=== PATIENT | female | born 1965 | race Caucasian/White ===

== ENCOUNTER 2018-04-21 07:38 | Emergency (ER) | payer BC ==
--- OUTSIDE RECORDS SUMMARY | 2018-04-21 07:44 | XMS REPORT | Continuity of Care Document ---
:1965 External Reference #:[id number] Author Name Alfreda Peace Care Team Providers Name Role Phone Lorene Roach MD Care Team Information White Spooler Unavailable Lorene Roach MD Primary Care Physician Unavailable Payers Type Date Identification Numbers Payment Provider Subscriber Effective: 2011 Policy Number: [id number] [employer] Kiah Genung PayID: [id number] Jessica [id number] MARY Souza [id number] Effective: 2010 Policy Number: [id number] [facility] Ppo Kiah Genung Expires: 2011 Group Name: Ppo [address] [address] PayID: [id number] MARY Coombs [id number] Advance Directives Description No Information Available Problems Date Description Provider Status Onset: 04/22/2015 Essential hypertension Lorene Roach M.D. Active Onset: 05/09/2017 Asthma Lorene Roach M.D. Active Onset: 05/09/2017 Sleep apnea Lorene Roach M.D. 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 [employer] Tobacco Use Start: Unknown Never Smoked Cigarettes ETOH Use Drinks 5 Alcoholic Beverages Per Week Tobacco Use Start: Unknown Patient has never smoked Recreational Drug Use Denies Drug Use Smoking Status Reviewed: 03/24/18 Patient has never smoked Exercise Type/Frequency Walks 2 times a week Exercise Type/Frequency Exercises sporadically Allergies, Adverse Reactions, Alerts Date Description Reaction Status Severity Comments 11/16/2009 Penicillins rash Active Moderate Medications Medication Date Status Form Strength Qnty SIG Indications Ordering Provider Mandibular 04/26 Active Device 1unit fabricate G47.33 Norma s oral Rao, Device appliance USMAN, RN, /glenn HIGGINS r advancemen t device for sleep apnea with needed adjustment s. Amlodipine 06/17 Active Tablets 5mg 90tab take one Besylate s tablet by Cotton, mouth once M.D. daily Valsartan-Hydroc 04/22 Active Tablets 160-25mg 90tab take one hlorothiazide s tablet by Cotton, mouth once M.D. daily Proair HFA 09/01 Active Aerosol 108(90Bas 8.5un Inhale Two e) its Puffs By Cotton, mcg/Act Mouth M.D. Every 4 Hours as Needed Advair Diskus 10/21 Active Aerosol 100-50mcg 60uni inhale one J45.909 /Dose ts puff by Cotton, mouth M.D. twice a day Azithromycin 08/19 Hx Tablets 250mg 6tabs 2 tabs by J01.90 mouth GUCCI Ortiz - every day 08/24 x1 day, tab by mouth every day x 4 days Norvasc 06/17 Hx Tablets 5mg 90tab 1 by mouth s every day Cotton, - M.D. 06/17 Azithromycin 05/28 Hx Tablets 250mg 6tabs 2 tabs by J01.90 Lorene mouth on Cotton, - day 1; 1 M.D. 06/01 tab by /2016 mouth every day on days 2-5 Transderm-Scop 04/22 Hx Patches 1mg/3Days 5unit apply to 72HR s skin Doc, - behind the M.D. 02/15 ear every 3 days Azithromycin 04/27 Hx Tablets 250mg 6tabs 2 tabs po 461.9 on day 1; Doc, - 1 tab po M.D. 05/10 qd on 2-5 Valsartan-Hydroc 03/19 Hx Tablets 160-12.5m 90tab Take One Lorene hlorothiazide g s Tablet By Cotton, - Mouth Once M.D. 04/22 Azithromycin 06/14 Hx Tablets 250mg 6tabs 2 tabs po 462 Lorene on day 1; Cotton, - 1 tab po M.D. 10/03 qd on 2-5 Valacyclovir HCL 12/15 Hx Tablets 1gm 21tab 1 po tid 053.29 s for 7 days Varn, N.P. - 12/22 Neurontin 12/15 Hx Capsules 300mg 90cap 1 po up to 053.29 s tid Varn, N.P. - 02/13 Cyclobenzaprine 12/09 Hx Tablets 10mg 30tab 1 tablet 724.2 Lorene HCL s at bedtime Doc, - as needed M.D. 02/24 Nystatin 10/29 Hx Suspension 143276Ghm 250ml 4 ml swish t/ML and Doc, - swallow M.D. 02/24 qid for days Azithromycin 10/21 Hx Tablets 250mg 6tabs 2 tabs po 786.50 on day 1; Doc, - 1 tab po M.D. 11/06 qd on 2-5 Proair HFA 10/21 Hx Aerosol 108(90Bas 1unit 2 puffs 4 493.90 e) mcg/ac s times Doc, - daily as M.D. 09/01 Diovan HCT 08/23 Hx Tablets 160-12.5m 90tab 1 po qd g s Doc - M.D. 03/19 Amlodipine 12/23 Hx Tablets 5mg 90tab Take One Lorene Besylate s Tablet By Cotton, - Mouth Once M.D. 06/17 Daily Amlodipine 12/04 Hx Tablets 2.5mg 30tab 1 po qd 401.1 Lorene Besylate s Doc - M.D. 12/23 Hydrocortisone 02/05 Hx Cream 2.5% 30gm apply to 782.1 affected Cotton, - area twice M.D. 02/24 Atenolol 12/19 Hx Tablets 25mg 30tab 1 by mouth 401.1 s once daily Cotton, - M.D. 04/24 Diovan HCT 11/16 Hx Tablets 160-25mg 30tab Take One s Tablet By Cotton, - Mouth Once M.D. 08/[address] 20mg 1 by mouth Unknown /0000 every day - 03/24 Immunizations CPT Code Status Date Vaccine Lot # [id number] Given 02/05/2018 Influenza Virus Vaccine, Quadrivalent, Split, Preservative Free [id number] Given 02/03/2017 Influenza Virus Vaccine, Quadrivalent, Split, Preservative Free 87848 Given 01/11/2014 Pneumonia Vaccine [id number] Given 02/25/2012 Fluvirin Im 3Yrs And Older [id number] Given 02/25/2012 Tdap - Tetanus/Diptheria/Acellular Pertussis [id number] Given 02/05/2010 Influenza Virus 3Yrs & Over [id number] Given 02/14/2009 Influenza Virus 3Yrs & Over Vital Signs Date Vital Result Comment 03/24/2018 8:41am Height 60 inches 5'0" Weight 198.00 lb Heart Rate 81 /min BP Systolic Sitting 127 mmHg BP Diastolic Sitting 87 mmHg O2 % BldC Oximetry 98 % BMI (Body Mass Index) 38.7 kg/m2 08/05/2017 7:30am Weight 219.25 lb Heart Rate 91 /min BP Systolic 134 mmHg BP Diastolic 80 mmHg Body Temperature 97.8 F O2 % BldC Oximetry 94 % 04/26/2017 9:17am Height 60 inches 5'0" Weight 222.50 lb Heart Rate 80 /min BP Systolic Sitting 132 mmHg Lue large cuff BP Diastolic Sitting 86 mmHg Lue large cuff Respiratory Rate 16 /min O2 % BldC Oximetry 96 % On Ra BMI (Body Mass Index) 43.4 kg/m2 02/16/2017 8:40am Height 60 inches 5'0" Weight 221.00 lb Heart Rate 76 /min BP Systolic Sitting 118 mmHg BP Diastolic Sitting 90 mmHg Respiratory Rate 14 /min O2 % BldC Oximetry 96 % BMI (Body Mass Index) 43.2 kg/m2 Neck Circumference in inches 17 12/17/2016 11:53am Weight 221.25 lb Heart Rate 80 /min BP Systolic Sitting 122 mmHg BP Diastolic Sitting 80 mmHg Respiratory Rate 16 /min O2 % BldC Oximetry 96 % 08/19/2016 11:33am Weight 222.00 lb Heart Rate 75 /min BP Systolic Sitting 118 mmHg BP Diastolic Sitting 86 mmHg Body Temperature 98.0 F O2 % BldC Oximetry 96 % 07/09/2016 9:34am Height 60 inches 5'0" Weight 216.00 lb Heart Rate 88 /min BP Systolic 155 mmHg BP Diastolic 90 mmHg Respiratory Rate 17 /min Pain Level 0 BMI (Body Mass Index) 42.2 kg/m2 06/02/2016 10:52am Height 60 inches 5'0" Weight 216.00 lb BP Systolic Sitting 122 mmHg BP Diastolic Sitting 72 mmHg Pain Level 4 BMI (Body Mass Index) 42.2 kg/m2 05/28/2016 7:43am Weight 216.00 lb with shoes Heart Rate 83 /min BP Systolic 130 mmHg BP Diastolic 82 mmHg BP Systolic Sitting 128 mmHg BP Diastolic Sitting 92 mmHg Body Temperature 98.5 F O2 % BldC Oximetry 98 % 11/26/2015 8:41am Weight 215.00 lb with shoes Heart Rate 76 /min BP Systolic Sitting 130 mmHg BP Diastolic Sitting 90 mmHg Body Temperature 98.5 F O2 % BldC Oximetry 98 % 04/22/2015 8:45am Weight 215.00 lb Heart Rate 86 /min BP Systolic Sitting 138 mmHg BP Diastolic Sitting 68 mmHg Body Temperature 98.6 F O2 % BldC Oximetry 97 % 12/19/2014 8:11am Height 60 inches 5'0" Weight 211.00 lb Pain Level 2 up to 5 BMI (Body Mass Index) 41.2 kg/m2 09/21/2014 9:46am Weight 211.75 lb Heart Rate 84 /min BP Systolic Sitting 130 mmHg BP Diastolic Sitting 89 mmHg 01/11/2014 9:40am Weight 203.00 lb Heart Rate 72 /min BP Systolic Sitting 120 mmHg BP Diastolic Sitting 78 mmHg Body Temperature 97.1 F 04/27/2013 9:21am Weight 178.50 lb Heart Rate 72 /min BP Systolic 122 mmHg BP Diastolic 78 mmHg Body Temperature 97.3 F 12/20/2012 3:37pm Weight 195.00 lb Heart Rate 78 /min BP Systolic Sitting 124 mmHg BP Diastolic Sitting 80 mmHg 10/25/2012 9:44am Weight 199.00 lb Heart Rate 80 /min BP Systolic Sitting 128 mmHg BP Diastolic Sitting 80 mmHg 06/14/2012 1:38pm Height 60.75 inches 5'0.75" Weight 203.00 lb Heart Rate 78 /min BP Systolic Sitting 126 mmHg BP Diastolic Sitting 82 mmHg Body Temperature 98.2 F BMI (Body Mass Index) 38.7 kg/m2 02/25/2012 8:40am Height 60.75 inches 5'0.75" Weight 199.00 lb Heart Rate 80 /min BP Systolic Sitting 118 mmHg BP Diastolic Sitting 80 mmHg BMI (Body Mass Index) 37.9 kg/m2 12/16/2011 11:38am Height 60.75 inches 5'0.75" Weight 193.00 lb Heart Rate 80 /min BP Systolic Sitting 136 mmHg BP Diastolic Sitting 80 mmHg Body Temperature 99.3 F BMI (Body Mass Index) 36.8 kg/m2 12/10/2011 1:57pm Height 60.75 inches 5'0.75" Weight 197.00 lb Heart Rate 76 /min BP Systolic Sitting 124 mmHg BP Diastolic Sitting 74 mmHg Body Temperature 98.6 F BMI (Body Mass Index) 37.5 kg/m2 11/12/2011 11:58am Height 60.75 inches 5'0.75" Weight 194.00 lb Heart Rate 72 /min BP Systolic Sitting 122 mmHg BP Diastolic Sitting 68 mmHg BMI (Body Mass Index) 37.0 kg/m2 10/22/2011 8:42am Height 60.75 inches 5'0.75" Weight 194.00 lb Heart Rate 76 /min BP Systolic Sitting 128 mmHg BP Diastolic Sitting 78 mmHg Body Temperature 97.9 F O2 % BldC Oximetry 98 % BMI (Body Mass Index) 37.0 kg/m2 08/24/2011 2:47pm Height 60.75 inches 5'0.75" Weight 195.00 lb Heart Rate 80 /min BP Systolic Sitting 126 mmHg BP Diastolic Sitting 78 mmHg BMI (Body Mass Index) 37.1 kg/m2 04/23/2011 9:46am Height 60.75 inches 5'0.75" Weight 201.00 lb Heart Rate 100 /min BP Systolic Sitting 130 mmHg BP Diastolic Sitting 78 mmHg BMI (Body Mass Index) 38.3 kg/m2 12/23/2010 8:34am Height 60.75 inches 5'0.75" Weight 201.00 lb Heart Rate 82 /min BP Systolic Sitting 128 mmHg L BP Diastolic Sitting 82 mmHg L BP Systolic Standing 113 mmHg home cuff BP Diastolic Standing 78 mmHg home cuff BMI (Body Mass Index) 38.3 kg/m2 12/04/2010 11:47am Height 60.75 inches 5'0.75" Weight 201.00 lb Heart Rate 70 /min BP Systolic Sitting 130 mmHg repeat 148/100 on R BP Diastolic Sitting 84 mmHg repeat 148/100 on R BMI (Body Mass Index) 38.3 kg/m2 06/06/2010 8:49am Weight 198.00 lb Heart Rate 78 /min BP Systolic 122 mmHg BP Diastolic 84 mmHg 04/24/2010 3:16pm Heart Rate 76 /min BP Systolic 142 mmHg BP Diastolic 92 mmHg Body Temperature 97.8 F 02/05/2010 8:48am Weight 197.00 lb Heart Rate 60 /min BP Systolic 90 mmHg BP Diastolic 70 mmHg 11/18/2009 5:32pm Weight 192.50 lb Heart Rate 72 /min BP Systolic 130 mmHg BP Diastolic 90 mmHg Body Temperature 98.3 F Results Test Date Facility Test Result H/L Range Note Lipid Profile 03/11/2018 [facility] Triglycerides 136 mg/dL 1 (Trig/Chol/HDL) [address] [place] [address] [phone] Cholesterol 185 mg/dL 2 HDL Cholesterol 65.3 mg/dL 3 LDL Cholesterol 93 mg/dL 4 Comp Metabolic Panel 03/11/2018 [facility] Sodium 139 mmol/L N 135-145 [address] [place] [address] [phone] Potassium 3.8 mmol/L N 3.5-5.0 Chloride 99 mmol/L Low 101-111 Co2 Carbon Dioxide 31 mmol/L N 22-32 Anion Gap 9 mmol/L N 2-11 Glucose 97 mg/dL N 70-100 Blood Urea Nitrogen 12 mg/dL N 6-24 Creatinine 0.71 mg/dL N 0.51-0.95 BUN/Creatinine Ratio 16.9 N 8-20 Calcium 9.9 mg/dL N 8.6-10.3 Total Protein 7.0 g/dL N 6.4-8.9 Albumin 4.1 g/dL N 3.2-5.2 Globulin 2.9 g/dL N 2-4 Albumin/Globulin Ratio 1.4 N 1-3 Total Bilirubin 0.70 mg/dL N 0.2-1.0 Alkaline Phosphatase 84 U/L N 34-104 Alt 17 U/L N 7-52 Ast 12 U/L Low 13-39 Egfr Non- 86.1 >60 Egfr 104.2 >60 5 Laboratory test 03/11/2018 [facility] Hemoglobin A1c 6.1 % High 4.0-5.6 [address] (Glyco HGB) [place] [address] [phone] Vitamin B12 185 pg/mL N 180-914 7 Laboratory test 01/20/2017 [facility] TSH (Thyroid 2.30 mcIU/mL N 0.34-5.[address] Stim Horm) [place] [address] [phone] Urinalysis 01/20/2017 [facility] Urine Color Yellow N Profile [address] [place] [address] [phone] Urine Appearance Clear N Urine Specific [place] 1.017 N 1.010-1.030 Urine pH 6.0 N 5-9 Urine Urobilinogen Negative N Negative Urine Ketones Negative N Negative Urine Protein Negative N Negative Urine Leukocytes Negative N Negative Urine Blood Negative N Negative Urine Nitrite Negative N Negative Urine Bilirubin Negative N Negative Urine Glucose Negative N Negative CBC Auto Diff 01/20/2017 [facility] White Blood 6.7 10^3/uL N 3.5-10.[address] [place] [address] [phone] Red Blood Count 5.12 10^6/uL N 4.0-5.4 Hemoglobin 13.7 g/dL N 12.0-16.0 Hematocrit 41 % N 35-47 Mean Corpuscular Volume 80 fL N 80-97 Mean Corpuscular Hemoglobin 27 pg N 27-31 Mean Corpuscular HGB Conc 34 g/dL N 31-36 Red Cell Distribution Width 15 % N 10.5-15 Platelet Count 371 10^3/uL N 150-450 Mean Platelet Volume 8 um3 N 7.4-10.4 Abs Neutrophils 3.9 10^3/uL N 1.5-7.7 Abs Lymphocytes 1.8 10^3/uL N 1.0-4.8 Abs Monocytes 0.5 10^3/uL N 0-0.8 Abs Eosinophils 0.5 10^3/uL N 0-0.6 Abs Basophils 0.1 10^3/uL N 0-0.2 Abs Nucleated RBC 0 10^3/uL N Granulocyte % 57.8 % N 38-83 Lymphocyte % 26.6 % N 25-47 Monocyte % 7.3 % N 1-9 Eosinophil % 7.0 % High 0-6 Basophil % 1.3 % N 0-2 Nucleated Red Blood Cells % 0 N Lipid Profile 12/09/2016 [facility] Triglycerides 150 mg/dL N 8 (Trig/Chol/HDL) [address] [place] [address] [phone] Cholesterol 195 mg/dL N 9 HDL Cholesterol 61.9 mg/dL N 10 LDL Cholesterol 103 mg/dL N 11 Comp Metabolic Panel 12/09/2016 [facility] Sodium 138 mmol/L N 133-[address] [place] [address] [phone] Potassium 4.3 mmol/L N 3.5-5.0 Chloride 98 mmol/L Low 101-111 Co2 Carbon Dioxide 32 mmol/L N 22-32 Anion Gap 8 mmol/L N 2-11 Glucose 109 mg/dL High 70-100 Blood Urea Nitrogen 16 mg/dL N 6-24 Creatinine 0.80 mg/dL N 0.51-0.95 BUN/Creatinine Ratio 20.0 N 8-20 Calcium 9.9 mg/dL N 8.6-10.3 Total Protein 7.3 g/dL N 6.4-8.9 Albumin 4.1 g/dL N 3.2-5.2 Globulin 3.2 g/dL N 2-4 Albumin/Globulin Ratio 1.3 N 1-3 Total Bilirubin 0.70 mg/dL N 0.2-1.0 Alkaline Phosphatase 77 U/L N 34-104 Alt 18 U/L N 7-52 Ast 13 U/L N 13-39 Egfr Non- 75.6 N >60 Egfr 97.3 N >60 12 Laboratory 12/09/2016 [facility] Hemoglobin A1c 6.0 % High Less 13 test finding [address] (Glyco HGB) [place] [address] 6.0 [phone] Laboratory 02/18/2016 [facility] Surgical SEE 14 test finding [address] [place] [address] BELOW [phone] Lipid Profile 11/20/2015 [facility] Triglycerides 194 mg/dL N 15, (Trig/Chol/HDL [address] 16 ) [place] [address] [phone] Cholesterol 211 mg/dL N 17 HDL Cholesterol 64.5 mg/dL N 18 LDL Cholesterol 108 mg/dL N 19 Laboratory test 11/20/2015 [facility] Hemoglobin A1c 5.8 % N Less than [address] (Glyco HGB) 6.0 [place], [place] [phone] Comp Metabolic 11/20/2015 [facility] Sodium 137 N 133-[address] mmol/[place] [address] [phone] Potassium 3.7 mmol/L N 3.5-5.0 Chloride 100 mmol/L Low 101-111 Co2 Carbon Dioxide 27 mmol/L N 22-32 Anion Gap 10 mmol/L N 2-11 Glucose 106 mg/dL High 70-100 Blood Urea Nitrogen 12 mg/dL N 6-24 Creatinine 0.74 mg/dL N 0.51-0.95 BUN/Creatinine Ratio 16.2 N 8-20 Calcium 9.8 mg/dL N 8.6-10.3 Total Protein 7.3 g/dL N 6.4-8.9 Albumin 4.3 g/dL N 3.2-5.2 Globulin 3.0 g/dL N 2-4 Albumin/Globulin Ratio 1.4 N 1-3 Total Bilirubin 0.70 mg/dL N 0.2-1.0 Alkaline Phosphatase 81 U/L N 34-104 Alt 23 U/L N 7-52 Ast 18 U/L N 13-39 Egfr Non- 83.1 N >60 Egfr 106.8 N >60 21 Rapid Influenza 08/18/2015 [facility] Influenza A NEGATIVE N Negative 22 A & B Molecular [address] [place] [address] [phone] Influenza B Molecular POSITIVE Abnormal Negative Comp Metabolic Panel 04/18/2015 [facility] Sodium 137 mmol/L N 133-[address] [place] [address] [phone] Potassium 4.1 mmol/L N 3.5-5.0 Chloride 100 mmol/L Low 101-111 Co2 Carbon Dioxide 25 mmol/L N 22-32 Anion Gap 12 mmol/L High 2-11 Glucose 113 mg/dL High 70-100 Blood Urea Nitrogen 16 mg/dL N 6-24 Creatinine 0.82 mg/dL N 0.51-0.95 BUN/Creatinine Ratio 19.5 N 8-20 Calcium 9.8 mg/dL N 8.6-10.3 Total Protein 7.2 g/dL N 6.4-8.9 Albumin 4.4 g/dL N 3.2-5.2 Globulin 2.8 g/dL N 2-4 Albumin/Globulin Ratio 1.6 N 1-3 Total Bilirubin 0.60 mg/dL N 0.2-1.0 Alkaline Phosphatase 79 U/L N 34-104 Alt 22 U/L N 7-52 Ast 17 U/L N 13-39 Egfr Non- 73.8 N >60 Egfr 94.9 N >60 23 Lipid Profile 04/18/2015 [facility] Triglycerides 128 mg/dL N 24 (Trig/Chol/HDL) [address] [place] [address] [phone] Cholesterol 187 mg/dL N 25 HDL Cholesterol 66.8 mg/dL N 26 LDL Cholesterol 95 mg/dL N 27 Laboratory test 04/18/2015 [facility] Hemoglobin A1c 5.7 % N Less than [address] (Glyco HGB) 6.0 [place] [address] [phone] Laboratory test 09/17/2014 Hemoglobin A1c 5.8 % N Less than 29 finding (Glyco HGB) 6.0 Comp Metabolic 12/22/2013 [facility] Sodium 139 N 133-145 [address] mmol/[place] [address] [phone] Potassium 4.5 mmol/L N 3.7-5.6 Chloride 103 mmol/L N 101-111 Co2 Carbon Dioxide 28 mmol/L N 22-32 Anion Gap 8 mmol/L N 2-11 Glucose 92 mg/dL N 70-100 Blood Urea Nitrogen 13 mg/dL N 6-24 Creatinine 0.71 mg/dL N 0.51-0.95 BUN/Creatinine Ratio 18.3 N 8-20 Calcium 9.6 mg/dL N 8.6-10.3 Total Protein 7.4 g/dL N 6.4-8.9 Albumin 4.1 g/dL N 3.2-5.2 Globulin 3.3 g/dL N 2-4 Albumin/Globulin Ratio 1.2 N 1-3 Total Bilirubin 0.60 mg/dL N 0.2-1.0 Alkaline Phosphatase 79 U/L N 34-104 Alt 18 U/L N 7-52 Ast 15 U/L N 13-39 Egfr Non- 87.5 N >60 Egfr 112.5 N >60 31 Lipid Profile 12/22/2013 [facility] Triglycerides 132 mg/dL N 32 (Trig/Chol/HDL) [address] [place] [address] [phone] Cholesterol 184 mg/dL N 33 HDL Cholesterol 75.4 mg/dL N 34 LDL Cholesterol 82 mg/dL N 35 Laboratory test 12/22/2013 [facility] Hemoglobin A1c 5.9 % N Less than 36 finding 101 [facility] [address] [place] [address] [phone] TSH (Thyroid Stimulating Horm) 1.53 IU/mL N 0.34-5.60 37 Basic Metabolic Panel 03/03/2013 [facility] Sodium 138 mmol/L 133-145 [address] [place] [address] [phone] Potassium 4.3 mmol/L 3.5-5.0 Chloride 100 mmol/L Low 101-111 Co2 Carbon Dioxide 28.0 mmol/L 22-32 Anion Gap 10.0 mmol/L 2-11 Glucose 99 mg/dL 70-100 Blood Urea Nitrogen 11 mg/dL 6-24 Creatinine 0.80 mg/dL 0.50-1.40 BUN/Creatinine Ratio 13.8 8-20 Calcium 10.0 mg/dL High 8.1-9.9 Egfr Non- 76.6 >60 Egfr 98.5 >60 38 Laboratory test 03/03/2013 [facility] Hemoglobin A1c 6.1 % High Less than [address] [place] [address] [phone] Laboratory test 12/14/2012 [facility] Troponin I 0 ng/mL 0- 0.06 40 finding [address] [place] [address] [phone] CBC Auto Diff 12/14/2012 [facility] White Blood 10.5 4.8- 10.[address] Count 10^3/[place] [address] [phone] Red Blood Count 4.57 10^6/uL 4.0-5.4 Hemoglobin 12.4 g/dL 12.0-16.0 Hematocrit 38 % 35-47 Mean Corpuscular Volume 82 fL 80-97 Mean Corpuscular Hemoglobin 27 pg 27-31 Mean Corpuscular HGB Conc 33 g/dL 31-36 Red Cell Distribution Width 14 % 10.5-15 Platelet Count 322 10^3/uL 150-450 Mean Platelet Volume 7 um3 Low 7.4-10.4 Abs Neutrophils 7.7 10^3/uL 1.5-7.7 Abs Lymphocytes 1.7 10^3/uL 1.0-4.8 Abs Monocytes 0.7 10^3/uL 0-0.8 Abs Eosinophils 0.3 10^3/uL 0-0.6 Abs Basophils 0.1 10^3/uL 0-0.2 Abs Nucleated RBC 0 10^3/uL Granulocyte % 73.4 % 38-83 Lymphocyte % 16.2 % Low 25-47 Monocyte % 6.6 % 1-9 Eosinophil % 3.3 % 0-6 Basophil % 0.5 % 0-2 Nucleated Red Blood Cells % 0 Laboratory test 12/14/2012 [facility] Serum Negative Negative [address] [place] [address] [phone] Comp Metabolic 12/14/2012 [facility] Sodium 136 mmol/L 133- [address] [place] [address] [phone] Potassium 3.4 mmol/L Low 3.5-5.0 Chloride 101 mmol/L 101-111 Co2 Carbon Dioxide 26.0 mmol/L 22-32 Anion Gap 9.0 mmol/L 2-11 Glucose 116 mg/dL High 70-100 Blood Urea Nitrogen 12 mg/dL 6-24 Creatinine 0.80 mg/dL 0.50-1.40 BUN/Creatinine Ratio 15.0 8-20 Calcium 9.4 mg/dL 8.1-9.9 Total Protein 7.2 g/dL 6.2-8.1 Albumin 3.9 g/dL 3.6-5.4 Globulin 3.3 g/dL 2-4 Albumin/Globulin Ratio 1.2 1-3 Total Bilirubin 0.5 mg/dL 0.4-1.5 Alkaline Phosphatase 70 U/L 30-110 Alt 17 U/L 14-54 Ast 20 U/L 12-42 Egfr Non- 76.6 >60 Egfr 98.5 >60 42 Laboratory test 12/14/2012 [facility] Troponin I 0 ng/mL 0- 0.06 [address] [place] [address] [phone] Comp Metabolic 09/27/2012 [facility] Sodium 138 mmol/L 133- 145 Panel [address] [place] [address] [phone] Potassium 4.5 mmol/L 3.5-5.0 Chloride 101 mmol/L 101-111 Co2 Carbon Dioxide 29.0 mmol/L 22-32 Anion Gap 8.0 mmol/L 2-11 Glucose 104 mg/dL High 70-100 Blood Urea Nitrogen 11 mg/dL 6-24 Creatinine 0.70 mg/dL 0.50-1.40 BUN/Creatinine Ratio 15.7 8-20 Calcium 10.2 mg/dL High 8.1-9.9 Total Protein 6.9 g/dL 6.2-8.1 Albumin 4.0 g/dL 3.6-5.4 Globulin 2.9 g/dL 2-4 Albumin/Globulin Ratio 1.4 1-3 Total Bilirubin 0.8 mg/dL 0.4-1.5 Alkaline Phosphatase 84 U/L 30-110 Alt 21 U/L 14-54 Ast 19 U/L 12-42 Egfr Non- 89.7 >60 Egfr 115.4 >60 44 Lipid Profile 09/27/2012 [facility] Triglycerides 145 mg/dL 40-200 (Trig/Chol/HDL) [address] [place] [address] [phone] Cholesterol 186 mg/dL Less than 200 HDL Cholesterol 64 mg/dL High 40-60 45 Cholesterol/HDL Ratio 2.9 Average 1-4.44 LDL Cholesterol 93.0 mg/dL Less Than 100 46 Laboratory test 09/27/2012 [facility] Hemoglobin A1c 6.1 % High Less than [address] [place] [address] [phone] Basic Metabolic 11/12/2011 [facility] Sodium 140 135-[address] mmol/[place] [address] [phone] Potassium 4.2 mmol/L 3.5-5.0 Chloride 100 mmol/L Low 101-111 Co2 (Carbon Dioxide) 33.0 mmol/L High 22-32 Anion Gap 7.0 mmol/L 2-11 48 Glucose 89 mg/dL 70-100 BUN 6 mg/dL 6-24 Creatinine 0.8 mg/dL 0.50-1.40 One Over Creatinine 1.25 BUN/Creatinine Ratio 7.5 Low 8-20 Calcium 9.8 mg/dL 8.1-9.9 eGFR Non- 77.2 > 60 eGFR 99.3 > 60 49 Lipid Profile 08/14/2011 [facility] Triglyceride 177 mg/dL 40 -200 (Trig/Chol/HDL) [address] [place] [address] [phone] Cholesterol 161 mg/dL Less Than 200 50 High Density Lipoprotein 52 mg/dL 40-60 51 Cholesterol/HDL Ratio 3.10 AVERAGE 1-4.44 Low Density Lipoprotein 74 mg/dL Less Than 100 52 Comp Metabolic Panel 08/14/2011 [facility] Sodium 136 mmol/L 135-[address] [place] [address] [phone] Potassium 3.3 mmol/L Low 3.5-5.0 Chloride 99 mmol/L Low 101-111 Co2 (Carbon Dioxide) 29.0 mmol/L 22-32 Anion Gap 8.0 mmol/L 2-11 53 Glucose 109 mg/dL High 70-100 BUN 8 mg/dL 6-24 Creatinine 0.8 mg/dL 0.50-1.40 One Over Creatinine 1.25 BUN/Creatinine Ratio 10.0 8-20 Calcium 9.6 mg/dL 8.1-9.9 Total Protein 7.2 GM/DL 6.2-8.1 Albumin 4.2 GM/DL 3.6-5.4 Globulin 3.0 GM/DL 2-4 Albumin/Globulin Ratio 1.4 1-3 Bilirubin Total 0.9 mg/dL 0.4-1.5 54 Alkaline Phosphatase 66 U/L 30-110 Alt (SGPT) 19 U/L 14-54 Ast (Sgot) 17 U/L 12-42 eGFR Non- 77.2 > 60 eGFR 99.3 > 60 55 Laboratory test 08/14/2011 [facility] Hemoglobin A1c 5.8 % Less Than [address] [place] [address] [phone] Laboratory test 12/16/2010 [facility] Hemoglobin A1c 6.1 % High Less Than [address] [place] [address] [phone] Basic Metabolic 12/16/2010 [facility] Sodium 138 135-[address] mmol/[place] [address] [phone] Potassium 4.1 mmol/L 3.5-5.0 Chloride 99 mmol/L Low 101-111 Co2 (Carbon Dioxide) 30.0 mmol/L 22-32 Anion Gap 9.0 mmol/L 2-11 58 Glucose 116 mg/dL High 70-100 BUN 9 mg/dL 6-24 Creatinine 0.70 mg/dL 0.50-1.40 One Over Creatinine 1.40 BUN/Creatinine Ratio 12.9 8-20 Calcium 9.8 mg/dL 8.1-9.9 eGFR Non- 90.1 > 60 eGFR 115.9 > 60 59 CBC No Diff 12/16/2010 [facility] White Blood Count 6.6 CUMM 4.8-10.[address] [place] [address] [phone] Red Cell Count 4.74 CUMM 4.2-5.4 Hemoglobin 13.2 g/dL 12.0-16.0 Hematocrit 39 % 35-47 Mean Corpuscular Volume 82 um3 79-97 Mean Corpuscular Hemoglob 28 pg 27-31 Mean Corpuscular HGB Cone 34 g/dL 32-36 Redcell Distribution WDTH 14 % 10.5-15 Platelet Count 337 CUMM 150-450 Mean Platelet Volume 7.7 um3 7.4-10.4 Comp Metabolic Panel 05/29/2010 [facility] Sodium 134 mmol/L Low 135-[address] [place] [address] [phone] Potassium 3.9 mmol/L 3.5-5.0 Chloride 99 mmol/L Low 101-111 Co2 (Carbon Dioxide) 25.0 mmol/L 22-32 Anion Gap 10.0 mmol/L 2-11 60 Glucose 92 mg/dL 70-100 BUN 12 mg/dL 6-24 Creatinine 0.80 mg/dL 0.50-1.40 One Over Creatinine 1.20 BUN/Creatinine Ratio 15.0 8-20 Calcium 9.7 mg/dL 8.1-9.9 Total Protein 7.2 GM/DL 6.2-8.1 Albumin 3.9 GM/DL 3.6-5.4 Globulin 3.3 GM/DL 2-4 Albumin/Globulin Ratio 1.2 1-3 Bilirubin Total 0.7 mg/dL 0.4-1.5 61 Alkaline Phosphatase 76 U/L 30-110 Alt (SGPT) 20 U/L 14-54 Ast (Sgot) 17 U/L 12-42 eGFR Non- 82.4 > 60 eGFR 99.8 > 60 62 Lipid Profile 05/29/2010 [facility] Triglyceride 178 mg/dL 40 -200 (Trig/Chol/HDL) [address] [place] [address] [phone] Cholesterol 189 mg/dL Less Than 200 63 High Density Lipoprotein 48 mg/dL 40-60 64 Cholesterol/HDL Ratio 3.94 AVERAGE 1-4.44 Low Density Lipoprotein 105 mg/dL High Less Than 100 65 Laboratory test 05/29/2010 [facility] Hemoglobin A1c 5.8 % Less Than [address] [place] [address] [phone] 1 Desirable: <150 Borderline High: 150-199 High: 200-499 Very High: >500 2 Desirable: <200 Borderline High: 200-239 High: >239 3 Low: <40 Desirable: 40-60 High: >60 4 Desirable: <100 Near Optimal: 100-129 Borderline High: 130-159 High: 160-189 Very High: >189 5 Because ethnic data is not always readily available, this report includes an eGFR for both -Americans and non- Americans. The National Kidney Disease Education Program (NKDEP) does not endorse the use of the MDRD equation for patients that are not between the ages of 18 and 70, are , have extremes of body size, muscle mass, or nutritional status, or are non- or non-. According to the National Kidney Foundation, irrespective of diagnosis, the stage of the disease is based on the level of kidney function: Stage Description GFR(mL/min/1.73 m(2)) 1 Kidney damage with normal or decreased GFR 90 2 Kidney damage with mild decrease in GFR 60-89 3 Moderate decrease in GFR 30-59 4 Severe decrease in GFR 15-29 5 Kidney failure <15 (or dialysis) 6 Therapeutic target for the treatment of diabetes mellitus patients is <7% HBA1C, and in selective patients <6.0%. Please refer to [place] [employer] diabetic care guidelines for further information. 7 Normal Range 180 to 914 Indeterminate Range 145 to 180 Deficient Range <145 8 Desirable <150 Borderline high 150-199 High 200-499 Very High >500 9 Desirable <200 Borderline high 200-239 High >239 10 Low <40 Desirable: 40-60 High: >60 11 Desirable: <100 mg/dL Near Optimal: 100-129 mg/dL Borderline High: 130-159 mg/dL High: 160-189 mg/dL Very High: >189 mg/dL 12 Because ethnic data is not always readily available, this report includes an eGFR for both -Americans and non- Americans. The National Kidney Disease Education Program (NKDEP) does not endorse the use of the MDRD equation for patients that are not between the ages of 18 and 70, are , have extremes of body size, muscle mass, or nutritional status, or are non- or non-. According to the National Kidney Foundation, irrespective of diagnosis, the stage of the disease is based on the level of kidney function: Stage Description GFR(mL/min/1.73 m(2)) 1 Kidney damage with normal or decreased GFR 90 2 Kidney damage with mild decrease in GFR 60-89 3 Moderate decrease in GFR 30-59 4 Severe decrease in GFR 15-29 5 Kidney failure <15 (or dialysis) 13 Therapeutic target for the treatment of diabetes Mellitus patients is <7% HBA1C, and in selective patients <6.0%.Please refer to [place] [employer] Diabetic care guidelines for further information. 14 SEE RESULT BELOW Name: KIAH THOAMS : [address]: Kyle Grullon MD Acct: [id number] Unit: [id number] AGE: 50 Location: ENDO Re02/18/16 SEX: F Status: REG REF SPEC: [id number] AUSTEN: 02/18/16-[address]: Kyle Grullon MD REQ: [id number] RECD: 02/18/16 STATUS: DAYANNA MURO DR: Lorene Roach MD _ ORDERED: LEVEL IV FINAL DIAGNOSIS Colon, 10 cm, biopsy: -- Hyperplastic polyp. CLINICAL HISTORY Usual bowel habit - every day with no blood. Uncle and father - colorectal cancer, mother - breast, lymphoma POST-OPERATIVE DIAGNOSIS Colonoscopy to cecum with ease though loopy, excellent prep. Conclusions/Plan : Rectal nodule, positive family history second generation GROSS DESCRIPTION The specimen is received in formalin labeled, Rectal Polyp at 10 cm, and consists of a 0.3 x 0.3 x 0.2 cm bishop-pink polypoid soft tissue fragment, which is submitted entirely in one cassette. Signed (signature on file) David Zhao MD 1413 END OF REPORT * ML=Testing performed at Main Lab DEPARTMENT OF PATHOLOGY, [address] [place] [address] David Zhao M.D. Director [facility] # [id number] 15 PT IS FASTING 16 Desirable <150 Borderline high 150-199 High 200-499 Very High >500 17 Desirable <200 Borderline high 200-239 High >239 18 Low <40 Desirable: 40-60 High: >60 19 Desirable: <100 mg/dL Near Optimal: 100-129 mg/dL Borderline High: 130-159 mg/dL High: 160-189 mg/dL Very High: >189 mg/dL 20 Therapeutic target for the treatment of diabetes Mellitus patients is <7% HBA1C, and in selective patients <6.0%.Please refer to [place] [employer] Diabetic care guidelines for further information. 21 Because ethnic data is not always readily available, this report includes an eGFR for both -Americans and non- Americans. The National Kidney Disease Education Program (NKDEP) does not endorse the use of the MDRD equation for patients that are not between the ages of 18 and 70, are , have extremes of body size, muscle mass, or nutritional status, or are non- or non-. According to the National Kidney Foundation, irrespective of diagnosis, the stage of the disease is based on the level of kidney function: Stage Description GFR(mL/min/1.73 m(2)) 1 Kidney damage with normal or decreased GFR 90 2 Kidney damage with mild decrease in GFR 60-89 3 Moderate decrease in GFR 30-59 4 Severe decrease in GFR 15-29 5 Kidney failure <15 (or dialysis) 22 Supervisor [employer]: [id number] CRISTIAN ISSA 23 Because ethnic data is not always readily available, this report includes an eGFR for both -Americans and non- Americans. The National Kidney Disease Education Program (NKDEP) does not endorse the use of the MDRD equation for patients that are not between the ages of 18 and 70, are , have extremes of body size, muscle mass, or nutritional status, or are non- or non-. According to the National Kidney Foundation, irrespective of diagnosis, the stage of the disease is based on the level of kidney function: Stage Description GFR(mL/min/1.73 m(2)) 1 Kidney damage with normal or decreased GFR 90 2 Kidney damage with mild decrease in GFR 60-89 3 Moderate decrease in GFR 30-59 4 Severe decrease in GFR 15-29 5 Kidney failure <15 (or dialysis) 24 Desirable <150 Borderline high 150-199 High 200-499 Very High >500 25 Desirable <200 Borderline high 200-239 High >239 26 Low <40 Desirable: 40-60 High: >60 27 Desirable: <100 mg/dL Near Optimal: 100-129 mg/dL Borderline High: 130-159 mg/dL High: 160-189 mg/dL Very High: >189 mg/dL 28 Therapeutic target for the treatment of diabetes Mellitus patients is <7% HBA1C, and in selective patients <6.0%.Please refer to [place] [employer] Diabetic care guidelines for further information. 29 Therapeutic target for the treatment of diabetes Mellitus patients is <7% HBA1C, and in selective patients <6.0%.Please refer to [place] [employer] Diabetic care guidelines for further information. 30 DO IN THE SPRING PRIOR TO NEXT VISIT; FASTING 31 Because ethnic data is not always readily available, this report includes an eGFR for both -Americans and non- Americans. The National Kidney Disease Education Program (NKDEP) does not endorse the use of the MDRD equation for patients that are not between the ages of 18 and 70, are , have extremes of body size, muscle mass, or nutritional status, or are non- or non-. According to the National Kidney Foundation, irrespective of diagnosis, the stage of the disease is based on the level of kidney function: Stage Description GFR(mL/min/1.73 m(2)) 1 Kidney damage with normal or decreased GFR 90 2 Kidney damage with mild decrease in GFR 60-89 3 Moderate decrease in GFR 30-59 4 Severe decrease in GFR 15-29 5 Kidney failure <15 (or dialysis) 32 Desirable <150 Borderline high 150-199 High 200-499 Very High >500 33 Desirable <200 Borderline high 200-239 High >239 34 Low <40 Desirable: 40-60 High: >60 35 Desirable <100 Near Optimal 100-129 Borderline high 130-159 High 160-189 Very High >189 36 Therapeutic target for the treatment of diabetes Mellitus patients is <7% HBA1C, and in selective patients <6.0%.Please refer to [place] [employer] Diabetic care guidelines for further information. 37 DO IN THE SPRING PRIOR TO NEXT VISIT; FASTING 38 Because ethnic data is not always readily available, this report includes an eGFR for both -Americans and non- Americans. The National Kidney Disease Education Program (NKDEP) does not endorse the use of the MDRD equation for patients that are not between the ages of 18 and 70, are , have extremes of body size, muscle mass, or nutritional status, or are non- or non-. According to the National Kidney Foundation, irrespective of diagnosis, the stage of the disease is based on the level of kidney function: Stage Description GFR(mL/min/1.73 m(2)) 1 Kidney damage with normal or decreased GFR 90 2 Kidney damage with mild decrease in GFR 60-89 3 Moderate decrease in GFR 30-59 4 Severe decrease in GFR 15-29 5 Kidney failure <15 (or dialysis) 39 Therapeutic target for the treatment of diabetes Mellitus patients is <7% HBA1C, and in selective patients <6.0%.Please refer to [place] [employer] Diabetic care guidelines for further information. 40 Reference Range and Interpretation: TnI (ng/mL) Interpretation Less Than 0.06 ng/mL Not supportive of diagnosis of AR 0.06 - 0.50 ng/mL Indeterminate: suggest serial studies if clinically indicated. Greater than 0.5 ng/mL Consistent with diagnosis of AR 41 This test detects intact HCG only and is indicated for the early detection of . 42 Because ethnic data is not always readily available, this report includes an eGFR for both -Americans and non- Americans. The National Kidney Disease Education Program (NKDEP) does not endorse the use of the MDRD equation for patients that are not between the ages of 18 and 70, are , have extremes of body size, muscle mass, or nutritional status, or are non- or non-. According to the National Kidney Foundation, irrespective of diagnosis, the stage of the disease is based on the level of kidney function: Stage Description GFR(mL/min/1.73 m(2)) 1 Kidney damage with normal or decreased GFR 90 2 Kidney damage with mild decrease in GFR 60-89 3 Moderate decrease in GFR 30-59 4 Severe decrease in GFR 15-29 5 Kidney failure <15 (or dialysis) 43 Reference Range and Interpretation: TnI (ng/mL) Interpretation Less Than 0.06 ng/mL Not supportive of diagnosis of AR 0.06 - 0.50 ng/mL Indeterminate: suggest serial studies if clinically indicated. Greater than 0.5 ng/mL Consistent with diagnosis of AR 44 Because ethnic data is not always readily available, this report includes an eGFR for both -Americans and non- Americans. The National Kidney Disease Education Program (NKDEP) does not endorse the use of the MDRD equation for patients that are not between the ages of 18 and 70, are , have extremes of body size, muscle mass, or nutritional status, or are non- or non-. According to the National Kidney Foundation, irrespective of diagnosis, the stage of the disease is based on the level of kidney function: Stage Description GFR(mL/min/1.73 m(2)) 1 Kidney damage with normal or decreased GFR 90 2 Kidney damage with mild decrease in GFR 60-89 3 Moderate decrease in GFR 30-59 4 Severe decrease in GFR 15-29 5 Kidney failure <15 (or dialysis) 45 HDL Interpretation: Undesirable: High Risk: Less than 40 mg/dL Desirable: Low Risk: Greater than 60 mg/dL 46 LDL Interpretation: Low Risk Optimal Level: LDL Less than 100 mg/dL Near or Above Optimal: LDL 100-129 mg/dL Borderline High Risk: LDL 130-159 mg/dL High Risk: LDL 160-189 mg/dL Very High Risk: LDL Greater than 189 mg/dL 47 Therapeutic target for the treatment of diabetes Mellitus patients is <7% HBA1C, and in selective patients <6.0%.Please refer to [place] [employer] Diabetic care guidelines for further information. 48 Anion gap measurement may be of limited value in the presence of any alkalosis, especially in a combined acid base disorder. . 49 Because ethnic data is not always readily available, this report includes an eGFR for both -Americans and non- Americans. The National Kidney Disease Education Program (NKDEP) does not endorse the use of the MDRD equation for patients that are not between the ages of 18 and 70, are , have extremes of body size, muscle mass, or nutritional status, or are non- or non-. According to the National Kidney Foundation, irrespective of diagnosis, the stage of the disease is based on the level of kidney function: Stage Description GFR(mL/min/1.73 m(2)) 1 Kidney damage with normal or decreased GFR 90 2 Kidney damage with mild decrease in GFR 60-89 3 Moderate decrease in GFR 30-59 4 Severe decrease in GFR 15-29 5 Kidney failure <15 (or dialysis) 50 CHOLESTEROL INTERPRETATION: Desirable: Less than 200 MG/DL Borderline-High Risk: 200-239 MG/DL High-Risk: 240 MG/DL and over 51 HDL INTERPRETATION: Undesirable: High Risk: Less than 40 MG/DL Desirable: Low Risk: Greater than 60 MG/DL 52 LDL INTERPRETATION: Low Risk Optimal Level: LDL Less than 100 MG/DL Near or Above Optimal: LDL 100-129 MG/DL Borderline High Risk: LDL 130-159 MG/DL High Risk: LDL 160-189 MG/DL Very High Risk: LDL Greater than 189 MG/DL 53 Anion gap measurement may be of limited value in the presence of any alkalosis, especially in a combined acid base disorder. . 54 A metabolite of Naproxen, O-desmethylnaproxen, has been shown to interfere with the Jendrassik-Shaye method for measuring total bilirubin. Samples from patients who have taken Naproxen have shown spurious elevation in total bilirubin levels. 55 Because ethnic data is not always readily available, this report includes an eGFR for both -Americans and non- Americans. The National Kidney Disease Education Program (NKDEP) does not endorse the use of the MDRD equation for patients that are not between the ages of 18 and 70, are , have extremes of body size, muscle mass, or nutritional status, or are non- or non-. According to the National Kidney Foundation, irrespective of diagnosis, the stage of the disease is based on the level of kidney function: Stage Description GFR(mL/min/1.73 m(2)) 1 Kidney damage with normal or decreased GFR 90 2 Kidney damage with mild decrease in GFR 60-89 3 Moderate decrease in GFR 30-59 4 Severe decrease in GFR 15-29 5 Kidney failure <15 (or dialysis) 56 THERAPEUTIC TARGET FOR THE TREATMENT OF DIABETES MELLITUS PATIENTS IS <7% HBA1C, AND IN SELECTIVE PATIENTS <6.0%. PLEASE REFER TO [place] [employer] DIABETIC CARE GUIDELINES FOR FURTHER INFORMATION. 57 THERAPEUTIC TARGET FOR THE TREATMENT OF DIABETES MELLITUS PATIENTS IS <7% HBA1C, AND IN SELECTIVE PATIENTS <6.0%. PLEASE REFER TO [employer] DIABETIC CARE GUIDELINES FOR FURTHER INFORMATION. 58 Anion gap measurement may be of limited value in the presence of any alkalosis, especially in a combined acid base disorder. . 59 Because ethnic data is not always readily available, this report includes an eGFR for both -Americans and non- Americans. The National Kidney Disease Education Program (NKDEP) does not endorse the use of the MDRD equation for patients that are not between the ages of 18 and 70, are , have extremes of body size, muscle mass, or nutritional status, or are non- or non-. According to the National Kidney Foundation, irrespective of diagnosis, the stage of the disease is based on the level of kidney function: Stage Description GFR(mL/min/1.73 m(2)) 1 Kidney damage with normal or decreased GFR 90 2 Kidney damage with mild decrease in GFR 60-89 3 Moderate decrease in GFR 30-59 4 Severe decrease in GFR 15-29 5 Kidney failure <15 (or dialysis) 60 Anion gap measurement may be of limited value in the presence of any alkalosis, especially in a combined acid base disorder. . 61 A metabolite of Naproxen, O-desmethylnaproxen, has been shown to interfere with the Jendrassik-Shaye method for measuring total bilirubin. Samples from patients who have taken Naproxen have shown spurious elevation in total bilirubin levels. 62 Because ethnic data is not always readily available, this report includes an eGFR for both -Americans and non- Americans. The National Kidney Disease Education Program (NKDEP) does not endorse the use of the MDRD equation for patients that are not between the ages of 18 and 70, are , have extremes of body size, muscle mass, or nutritional status, or are non- or non-. According to the National Kidney Foundation, irrespective of diagnosis, the stage of the disease is based on the level of kidney function: Stage Description GFR(mL/min/1.73 m(2)) 1 Kidney damage with normal or decreased GFR 90 2 Kidney damage with mild decrease in GFR 60-89 3 Moderate decrease in GFR 30-59 4 Severe decrease in GFR 15-29 5 Kidney failure <15 (or dialysis) 63 CHOLESTEROL INTERPRETATION: Desirable: Less than 200 MG/DL Borderline-High Risk: 200-239 MG/DL High-Risk: 240 MG/DL and over 64 HDL INTERPRETATION: Undesirable: High Risk: Less than 40 MG/DL Desirable: Low Risk: Greater than 60 MG/DL 65 LDL INTERPRETATION: Low Risk Optimal Level: LDL Less than 100 MG/DL Near or Above Optimal: LDL 100-129 MG/DL Borderline High Risk: LDL 130-159 MG/DL High Risk: LDL 160-189 MG/DL Very High Risk: LDL Greater than 189 MG/DL 66 THERAPEUTIC TARGET FOR THE TREATMENT OF DIABETES MELLITUS PATIENTS IS <7% HBA1C, AND IN SELECTIVE PATIENTS <6.0%. PLEASE REFER TO [employer] DIABETIC CARE GUIDELINES FOR FURTHER INFORMATION. Procedures Date Code Description Status 07/06/2017 [id number] Mammogram Completed 02/28/2017 14521 Sleep Study Unattended,HRT Rate,Oxygen Sat,Resp Completed Effort/Airflow 04/07/2016 [id number] Mammogram Completed 02/18/2016 [id number] Colonoscopy Completed 12/26/2014 [id number] Mammogram Completed 10/05/2013 [id number] Mammogram Completed 09/15/2012 [id number] Mammogram Completed 10/22/2011 56980 Noninvasive Ear Or Pulse Oximetry For Oxygen Saturation Completed 10/22/2011 [id number] EKG Tracing & Interpretation Completed Encounters Type Date Location Provider Dx Diagnosis Office Visit 08/05/2017 [facility] Lorene Roach, I10 Essential ( primary) 7:40a Medicine - M.D. 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 (primary) [place] hypertension R60.0 Localized edema R53.83 Other fatigue R73.03 Prediabetes Office Visit 08/19/2016 [facility] Nima Ortiz NP J01.90 Acute sinusitis , 11:40a Medicine - unspecified [place] Office Visit 07/09/2016 Orthopedic Moshe Kendall M76.71 Peroneal 9:30a [facility] [place] schwartz, right C.M.A. leg Office Visit 06/02/2016 Orthopedic Liana Jimenez76.71 Peroneal 11:00a [facility] [place] tendinicorrie, right C.M.A. leg Office Visit 05/28/2016 [facility] [place] I10 Essential 7:40a Carolina Roach M.D. (primary) [place] hypertension R73.01 Impaired fasting glucose J01.90 Acute sinusitis, unspecified M79.671 Pain in right foot Office Visit 11/26/2015 8:40a [facility] [place] I10 Essential ( primary) Carolina Roach M.D. hypertension [place] R73.01 Impaired fasting glucose Z12.11 Encounter for screening for malignant neoplasm of colon Office Visit 04/22/2015 8:40a [facility] [place] I10 Essential ( primary) Carolina Roach M.D. hypertension [place] R73.01 Impaired fasting glucose Z12.11 Encounter for screening for malignant neoplasm of colon Z71.89 Other specified counseling Office Visit 12/19/2014 8:00a Orthopedic Marshall Tenorio, 726.65 Bursitis [facility] [place] Prepatellar C.M.A. 726.64 Tendinitis Patellar 715.96 Osteoarthrosis Unspec Genlzd Or Localized Lower Leg Office Visit 09/21/2014 9:40a [facility] [place] 401.1 Hypertension Carolina Roach M.D. Benign [place] 790.21 Impaired Fasting Glucose Office Visit 01/11/2014 9:40a [facility] [place] 401.1 Hypertension Carolina Roach M.D. Benign [place] 790.21 Impaired Fasting Glucose 493.90 Asthma Unspec W/O Status Asthmaticus V03.82 Streptococcus Pneumoniae Vaccination Spec Other Office Visit 04/27/2013 9:20a [facility] [place] 401.1 Hypertension Carolina Roach M.D. Benign [place] 461.9 Sinusitis Acute Unspec 790.21 Impaired Fasting Glucose Office Visit 12/20/2012 3:40p [facility] [place] Doc, 786.59 Pain Chest Medicine Lanre Nuñez Other [place] 401.1 Hypertension Benign 276.8 Hypopotassemia 790.21 Impaired Fasting Glucose 451.82 Phlebitis & Thrombophlebitis Superficial Veins Upper Extre Office Visit 10/25/2012 9:40a [facility] [place] 401.1 Hypertension [place] 790.21 Impaired Fasting Glucose 275.42 Hypercalcemia Office Visit 06/14/2012 1:40p [facility] [place] 462 Pharyngitis Acute [place] Office Visit 02/25/2012 8:40a [facility] [place] 401.1 Hypertension [place] 790.21 Impaired Fasting Glucose 493.90 Asthma Unspec W/O Status Asthmaticus V04.81 Need For Prophylactic Vaccination & Inoculation/Influenza V06.1 Eqskqvseaq-Glmzjic-Fvlfwhjt Combined (DTaP) Office Visit 12/16/2011 11:20a [facility] Mariah Carnes, 053.29 Herpes Zoster Medicine - N.PKwame Other [place] Office Visit 12/10/2011 2:00p [facility] [place] 724.2 Lumbago [place] Office Visit 11/12/2011 11:40a [facility] [place] 493.90 Asthma Unspec W/O Carolina Roach M.D. Status [place] Asthmaticus Office Visit 10/22/2011 8:40a [facility] [place] 786.50 Pain Chest Unspec [place] 493.90 Asthma Unspec W/O Status Asthmaticus Office Visit 08/24/2011 2:40p [facility] [place] 401.1 Hypertension [place] [facility] 04/23/2011 9:40a DO Not Use [place] 401.1 [facility]ension [facility] Benign 790.21 Impaired Fasting Glucose Office Visit 12/23/2010 DO Not Use [place] 401.1 Hypertension 8:40a Stoney Roach M.D. Benign Office Visit 12/04/2010 DO Not Use [place] 401.1 Hypertension 11:40a Stoney Roach M.D. Benign 782.7 Ecchymoses Spontaneous 784.0 Headache Office Visit 06/06/2010 DO Not Use [place] 401.1 Hypertension 8:45a Stoney Roach M.D. Benign 790.21 Impaired Fasting Glucose Office Visit 04/24/2010 DO Not Use Lorene 724.5 Backache Unspec 3:15p Stoney Roach M.D. Office Visit 02/05/2010 DO Not Use Lorene 401.1 Hypertension 8:45a Stoney Roach M.D. Benign 782.1 Rash & Other Nonspec Skin Eruption 785.6 Lymph Nodes Enlargement V04.81 Need For Prophylactic Vaccination & Inoculation/Influenza v04.81 Need For Prophylactic Vaccination & Inoculation/Influenza Office Visit 12/19/2009 DO Not Use Lorene 401.1 Hypertension 10:00a Stoney Roach M.D. Benign 785.6 Lymph Nodes Enlargement Office Visit 11/18/2009 DO Not Use Lorene 401.1 Hypertension 8:30a Stoney Roach M.D. Benign 785.6 Lymph Nodes Enlargement Office Visit 07/16/2009 8:45a DO Not Use [place], 790.21 Impaired Stoney Little M.D. Fasting Glucose 401.1 Hypertension Benign Office Visit 03/19/2009 8:30a DO Not Use [place], 790.21 Impaired Stoney Little M.D. Fasting Glucose 272.0 Hypercholesterolemia Pure 401.1 Hypertension Benign Office Visit 01/11/2009 DO Not Use [place], 380.10 Otitis Externa 1:45p Stoney Little M.D. Infective Unspec Office Visit 09/17/2008 DO Not Use [place], 272.4 Hyperlipidemia 8:45a Stoney Little M.D. Other Unspec 401.1 Hypertension Benign Office Visit 03/19/2008 DO Not Use [place], 272.4 Hyperlipidemia 8:30a Stoney Little M.D. Other Unspec 401.1 Hypertension Benign Office Visit 11/25/2007 DO Not Use Mariah Varn, 380.10 Otitis Externa 11:45a [facility] Infective Unspec Office Visit 09/14/2007 DO Not Use [place], 401.1 Hypertension 8:45a Stoney Little M.D. Benign Office Visit 04/06/2007 DO Not Use [place], 729.81 Swelling Of Limb 9:45a Stoney Little M.D. Office Visit 03/16/2007 DO Not Use [place], 280.9 Iron Deficiency 9:30a Stoney Little M.D. Anemia Unspec 401.1 Hypertension Benign Office Visit 01/31/2007 3:45p DO Not Use Mariah Varn, 380.10 Otitis Externa [facility] [facility] Infective Unspec Office Visit 01/28/2007 3:15p DO Not Use Mariah Varn, 380.10 Otitis Externa [facility]phone [facility] Infective Unspec 696.1 Psoriasis Other Office Visit 09/13/2006 DO Not Use [place], 401.1 Hypertension 11:15a Stoney Little M.D. Benign 285.9 Anemia Unspec Office Visit 03/08/2006 DO Not Use [place], V70.0 Examination 3:15p Stoney Little M.D. General Medical Routine AT Health Care Facility Plan of Treatment Future Appointment(s):09/22/2018 8:40 am - Lroene Roach M.D. at [facility] - [id number]/15/2018 - Lorene Roach M.D.I10 Essential ( primary) hypertensionComments:Your blood pressure is fine. Continue the same medication There is a new shingles vaccine - Shingrix. This is available at pharmacies. Series of 2 shots, given 2-6 months apart. Most people get a flu- like reaction. Cost is about $400 - call your insurance about coverage.Follow up :6 diapymU60.03 PrediabetesComments:Your sugar is stable over 5 [id number] Vitamin B12 deficiency anemia, unspecifiedComments:Start vitamin B12 - 500 micrograms [id number] Body mass index (BMI) 38.0-38.9, adultComments: Congratulations on your weight loss!
[2018-04-21 07:45] VITALS: BP 143/84
--- NOTE | 2018-04-21 08:42 | UC ---
Throat Pain/Nasal Tommie HPI - HPI Summary HPI Summary: 52-year-old woman comes in to clinic today with a chief complaint of runny nose sore throat and body aches gone on for 4 days. Also had some fevers. She's not had any [id number] medications as she has hypertension and does not want to make her hypertension worse. 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 No wheezing or chest congestion. - History of Current Complaint Chief Complaint: UCGeneralIllness Stated Complaint: FLU-LIKE SYMPTOMS Time Seen by Provider: 04/21/18 08:36 Pain Intensity: 2 - Allergies/Home Medications Allergies/Adverse Reactions: Allergies Allergy/AdvReac Type Severity Reaction Status Date / Time Penicillins Allergy Intermediate Rash Verified 04/21/18 07:40 PMH/Surg Hx/FS Hx/Imm Hx Previously Healthy: Yes Cardiovascular History: Hypertension - Surgical History Surgical History: Yes Surgery Procedure, Year, and Place: C-SECTIONS x2. Ablasions. tubal ligation - Family History Known Family History: Positive: None - Social History Alcohol Use: Rare Alcohol Amount: a few times a week Substance Use Type: None Smoking Status (MU): Never Smoked Tobacco Have You Smoked in the Last Year: No Review of Systems All Other Systems Reviewed And Are Negative: Yes Constitutional: Positive: Fever Eyes: Positive: Negative ENT: Positive: Sore Throat, Nasal Discharge, Sinus Congestion Respiratory: Positive: Cough Cardiovascular: Positive: Negative Gastrointestinal: Positive: Negative Motor: Positive: Negative Neurovascular: Positive: Negative Musculoskeletal: Positive: Negative Neurological: Positive: Negative Psychological: Positive: Negative Is Patient Immunocompromised?: No Physical Exam Triage Information Reviewed: Yes Appearance: No Pain Distress, Well-Nourished, Ill-Appearing - MILD Vital Signs: Initial Vital Signs Temp 98.7 F 04/21/18 07:41 Pulse 83 04/21/18 07:41 Resp 18 04/21/18 07:41 BP 143/84 04/21/18 07:41 Pulse Ox 98 04/21/18 07:41 Vital Signs Reviewed: Yes Eye Exam: Normal Eyes: Positive: Conjunctiva Clear ENT: Positive: Pharyngeal erythema, Nasal congestion, Nasal drainage, TMs normal Neck exam: Normal Neck: Positive: Supple Respiratory: Positive: Lungs clear, Normal breath sounds, No respiratory distress Cardiovascular: Positive: RRR Musculoskeletal Exam: Normal Musculoskeletal: Positive: Strength Intact, ROM Intact Neurological Exam: Normal Neurological: Positive: Alert, Muscle Tone Normal Psychological Exam: Normal Psychological: Positive: Age Appropriate Behavior Skin Exam: Normal Throat Pain/Nasal Course/Dx - Course Course Of Treatment: CONTINUE SX TREATMENT - Differential Dx/Diagnosis Provider Diagnosis: Upper respiratory infection Discharge - Sign-Out/Discharge Documenting (check all that apply): Patient Departure All imaging exams completed and their final reports reviewed: No Studies - Discharge Plan Condition: Stable Disposition: HOME Patient Education Materials: Upper Respiratory Infection (ED) Referrals: Lorene Roach MD [Primary Care Provider] - Additional Instructions: FOLLOW UP WITH YOUR DOCTOR IF NOT COMPLETELY IMPROVED. GET RECHECKED FOR ANY WORSENING OF YOUR CONDITION OR QUESTIONS OR CONCERNS. - Billing Disposition and Condition Condition: STABLE Disposition: Home
== END 2018-04-21 08:47 | disposition home or self-care (01) ==
LOC: UCEAST 07:38
DX: J06.9 Acute upper respiratory infection, unspecified (principal); I10 Essential (primary) hypertension; Z88.0 Allergy status to penicillin
CPT/HCPCS: 87651; 99211; G0463

== ENCOUNTER 2018-06-20 21:07 | Emergency (ER) | payer BC ==
[2018-06-20 21:21] VITALS: BP 165/85
--- NOTE | 2018-06-20 21:37 | UC ---
Throat Pain/Nasal Tommie HPI - HPI Summary HPI Summary: 52-year-old woman comes in with a chief complaint of upper respiratory tract infection symptoms for 5 days. She has a runny nose mild sore throat. No fevers no chest congestion no shortness of breath. She tried nasal spray a couple days ago and that did help with nasal congestion. One of her parents was just diagnosed with influenza. - History of Current Complaint Chief Complaint: UCGeneralIllness Stated Complaint: SINUS CONGESTION, AND COUGH Time Seen by Provider: 06/20/18 21:19 Pain Intensity: 0 - Allergies/Home Medications Allergies/Adverse Reactions: Allergies Allergy/AdvReac Type Severity Reaction Status Date / Time Penicillins Allergy Intermediate Rash Verified 06/20/18 21:21 Home Medications: Home Medications Fluticasone-Salmeterol 100-50* [Advair Diskus 100-50*] 1 puff INH DAILY [History Confirmed 06/20/18] PMH/Surg Hx/FS Hx/Imm Hx Previously Healthy: Yes Cardiovascular History: Hypertension Respiratory History: Asthma - Surgical History Surgical History: Yes Surgery Procedure, Year, and Place: C-SECTIONS x2. Ablasions. tubal ligation - Family History Known Family History: Positive: None - Social History Alcohol Use: Rare Alcohol Amount: a few times a week Substance Use Type: None Smoking Status (MU): Never Smoked Tobacco Have You Smoked in the Last Year: No Review of Systems All Other Systems Reviewed And Are Negative: Yes Constitutional: Positive: Negative Skin: Positive: Negative Eyes: Positive: Negative ENT: Positive: Sore Throat, Nasal Discharge, Sinus Congestion Respiratory: Positive: Negative Cardiovascular: Positive: Negative Gastrointestinal: Positive: Negative Motor: Positive: Negative Neurovascular: Positive: Negative Musculoskeletal: Positive: Negative Neurological: Positive: Negative Psychological: Positive: Negative Is Patient Immunocompromised?: No Physical Exam Triage Information Reviewed: Yes Appearance: No Pain Distress, Well-Nourished, Ill-Appearing - mild Vital Signs: Initial Vital Signs Temp 97.3 F 06/20/18 21:16 Pulse 79 06/20/18 21:16 Resp 20 06/20/18 21:16 BP 165/85 06/20/18 21:16 Pulse Ox 98 06/20/18 21:16 Vital Signs Reviewed: Yes Eye Exam: Normal Eyes: Positive: Conjunctiva Clear ENT: Positive: Pharyngeal erythema, Nasal congestion, Nasal drainage, TM dull - b/l Neck exam: Normal Neck: Positive: Supple Respiratory: Positive: Lungs clear, Normal breath sounds, No respiratory distress Cardiovascular: Positive: RRR Musculoskeletal Exam: Normal Musculoskeletal: Positive: Strength Intact, ROM Intact Neurological Exam: Normal Neurological: Positive: Alert, Muscle Tone Normal Psychological Exam: Normal Psychological: Positive: Normal Response To Family, Age Appropriate Behavior Skin Exam: Normal Throat Pain/Nasal Course/Dx - Course Course Of Treatment: DISCUSSED VIRAL VERSES BACTERIAL INFECTION AND THE ROLE OF ANTIBIOTICS. THE PATIENT WISHES TO HAVE AN ANTIBIOTIC PRESCRIPTION AT THIS TIME. - Differential Dx/Diagnosis Provider Diagnosis: Upper respiratory infection Discharge - Sign-Out/Discharge Documenting (check all that apply): Patient Departure All imaging exams completed and their final reports reviewed: No Studies - Discharge Plan Condition: Stable Disposition: HOME Prescriptions: Azithromyxin CARINE (NF) [Z-Carine (Zithromax) 250 mg tabs #6] 2 tab PO .TODAY, THEN 1 DAILY #6 tab Patient Education Materials: Upper Respiratory Infection (ED) Referrals: Lorene Roach MD [Primary Care Provider] - Additional Instructions: FOLLOW UP WITH YOUR DOCTOR IF NOT COMPLETELY IMPROVED. GET RECHECKED FOR ANY WORSENING OF YOUR CONDITION OR QUESTIONS OR CONCERNS. - Billing Disposition and Condition Condition: STABLE Disposition: Home
[2018-06-20 21:46] LABS: Influenza A Molecular NEGATIVE (Negative); Influenza B Molecular NEGATIVE (Negative)
== END 2018-06-20 21:56 | disposition home or self-care (01) ==
LOC: UCEAST 21:07
DX: J06.9 Acute upper respiratory infection, unspecified (principal); I10 Essential (primary) hypertension; J45.909 Unspecified asthma, uncomplicated; Z79.51 Long term (current) use of inhaled steroids
CPT/HCPCS: 99211; G0463

== ENCOUNTER 2019-08-25 14:10 | Emergency (ER) | payer BC, OTHER ==
[2019-08-25] MEDS ORDERED: NS 0.9% 1000 ML** 500 ML IV ONE (14:22)
--- NOTE | 2019-08-25 14:45 | ED ---
GI/ HPI - HPI Summary HPI Summary: The patient is a 53-year-old female presenting to [facility] [place] Emergency Department for evaluation of diarrhea and fevers for the last week. She reports that the diarrhea is watery without any blood or mucous. No recent travel, abnormal foods , or recent antibiotics. She has been quarantined with her family who are not sick. On 08/19/2019, she was tested for COVID19 and had negative results. However , she continues to have diarrhea with nausea but no vomiting. She additionally has been experiencing lower abdominal pain. Today, she measured a fever of 102F prior to coming in. Pain is rated 2/10 in severity. She has taken Tylenol at 10: 00. Past medical history includes pre-diabetes, hypertension, asthma, 2x C- sections, tubal ligation. Nonsmoker. Admits to rare alcohol use. No substance use. Medications reviewed. Allergies noted. - History of Current Complaint Time Seen by Provider: 08/25/19 14:13 Stated Complaint: FEVER, DIARRHEA PER PT Hx Obtained From: Patient Onset/Duration: Started Days Ago, Still Present Timing: Lasting Days Pain Intensity: 2 Location of Pain: Other - lower Associated Signs and Symptoms: Positive: Nausea, Diarrhea, Fever, Abdominal Pain. Negative: Vomiting, Blood w/Stool Aggravating Factor(s): Nothing Alleviating Factor(s): Nothing - Allergy/Home Medications Allergies/Adverse Reactions: Allergies Allergy/AdvReac Type Severity Reaction Status Date / Time Penicillins Allergy Intermediate Rash Verified 08/25/19 14:45 Home Medications: Home Medications Valsartan/HCTZ 160/25(NF) [Diovan Hct 160/25(NF)] 1 tab PO DAILY 02/14/16 [ History Confirmed 08/25/19] Fluticasone-Salmeterol 100-50* [Advair Diskus 100-50*] 1 puff INH BID 06/20/18 [ History Confirmed 08/25/19] Folic Acid TAB* [Folvite TAB*] 1 mg PO DAILY 08/25/19 [History Confirmed ] Methotrexate Sodium/Pf [Methotrexate 50 mg/2 ml Vial] 1 ml SUBCUT WEEKLY [History Confirmed 08/25/19] Omeprazole (Nf) [Prilosec (NF)] 40 mg PO DAILY 08/25/19 [History Confirmed 08/24] amLODIPine TAB* [Norvasc 5 mg TAB*] 10 mg PO DAILY 08/25/19 [History Confirmed 08/25/19] PMH/Surg Hx/FS Hx/Imm Hx Endocrine/Hematology History: Reports: Hx Diabetes - pre-diabetic Cardiovascular History: Reports: Hx Hypertension - W/MEDS, Other Cardiovascular Problems/Disorders - HTN Denies: Hx Congestive Heart Failure, Hx Hypercholesterolemia Respiratory History: Reports: Hx Asthma History: Denies: Hx Renal Disease - Cancer History Hx Chemotherapy: No Hx Radiation Therapy: No - Surgical History Surgical History: Yes Surgery Procedure, Year, and Place: C-SECTIONS x2. Ablasions. tubal ligation Infectious Disease History: Denies: Hx Clostridium Difficile, Hx Hepatitis, Hx Human Immunodeficiency Virus (HIV), Hx of Known/Suspected MRSA, Hx Shingles, Hx Tuberculosis, Hx Known/ Suspected VRE, Hx Known/Suspected VRSA, History Other Infectious Disease - Family History Known Family History: Negative: Cardiac Disease, Hypertension, Diabetes - Social History Alcohol Use: Rare Alcohol Amount: a few times a week Hx Substance Use: No Substance Use Type: Reports: None Hx Tobacco Use: No Smoking Status (MU): Never Smoked Tobacco Have You Smoked in the Last Year: No Review of Systems Positive: Fever - 102F Positive: Abdominal Pain - lower, Diarrhea - watery; no mucous or blood, Nausea. Negative: Vomiting All Other Systems Reviewed And Are Negative: Yes Physical Exam - Summary Physical Exam Summary: VITAL SIGNS: Reviewed. GENERAL: Patient is a well-developed although obese female who is lying comfortable in the stretcher. Patient is not in any acute respiratory distress. HEAD AND FACE: No signs of trauma. No ecchymosis, hematomas or skull depressions. No sinus tenderness. EYES: PERRL, EOMI x 2, No injected conjunctiva, no nystagmus. EARS: Hearing grossly intact. Ear canals and tympanic membranes are within normal limits. MOUTH: Oropharynx within normal limits. NECK: Supple, trachea is midline, no adenopathy, no JVD, no carotid bruit, no c- spine tenderness, neck with full ROM. CHEST: Symmetric, no tenderness at palpation. LUNGS: Clear to auscultation bilaterally. No wheezing or crackles. CVS: Regular rate and rhythm, S1 and S2 present, no murmurs or gallops appreciated. ABDOMEN: Soft, lower abdominal tenderness. No signs of distention. No rebound, no guarding, and no masses palpated. Bowel sounds are normal. EXTREMITIES: FROM in all major joints, no edema, no cyanosis or clubbing. NEURO: Alert and oriented x 3. No acute neurological deficits. Speech is normal and follows commands. SKIN: Dry and warm. Triage Information Reviewed: Yes Vital Signs Reviewed: Yes Procedures - Sedation Patient Received Moderate/Deep Sedation with Procedure: No Diagnostics - Laboratory Result Diagrams: 08/25/19 18:49 08/25/19 18:49 Lab Statement: Any lab studies that have been ordered have been reviewed, and results considered in the medical decision making process. - CT Abdomen/Pelvis CT CT Interpretation Completed By: Radiologist Summary of CT Findings: Impression: 1. The gallbladder is distended, without discrete gallstones. Clinical correlation and possible ultrasonography recommended. 2. There is mild stranding of the mid abdominal mesentery, suggestive of mesenteric panniculitis. This stranding extends to the peripancreatic region. Correlation with pancreatic enzymes is recommended to exclude pancreatitis. 3. Mesenteric lymph nodes are identified within the right lower quadrant, a few which are mildly enlarged. Mesenteric adenitis is considered. 4. Additional findings described above. Dr. Camacho has reviewed this report. - EKG 1452 Cardiac Rate: NL - 88 BPM EKG Rhythm: Sinus Rhythm EKG Comparison: No Significant Change - Similar to previous on 12/14/12. Summary of EKG Findings: EKG at 1452 reveals normal sinus rhythm at [address] depressions in leads I, II, and aVF. Unchanged from previous taken on 2012. Dr. Camacho has reviewed and interpreted this EKG. Re-Evaluation - Re-Evaluation First Eval Re-Evaluation Time: 16:30 Comment: Nurse unable to obtain IV access or lab work. Second Eval Re-Evaluation Time: 18:55 Comment: More blood obtained for repeat labs. GIGU Course/Dx - Course Assessment/Plan: The patient is a 53-year-old female presenting to [facility] [place] Emergency Department for evaluation of diarrhea and fevers for the last week. She reports that the diarrhea is watery without any blood or mucous. No recent travel, abnormal foods, or recent antibiotics. She has been quarantined with her family who are not sick. On 08/19/2019, she was tested for COVID19 and had negative results. However, she continues to have diarrhea with nausea but no vomiting. She additionally has been experiencing lower abdominal pain. Today, she measured a fever of 102F prior to coming in. Past medical history includes pre-diabetes, hypertension, asthma, 2x C-sections, tubal ligation. Nonsmoker. Admits to rare alcohol use. No substance use. Medications reviewed. Allergies noted. In the ED course, the patient was placed on a database consultant, IV access was obtained, IV fluids started. Past medical records reviewed. Blood test w/o a significant abnormality except for hemoglobin of 8.9, hematocrit 26, INR 1.38 , potassium 2, chloride 113, carbon dioxide 20, calcium 5.8, magnesium 1, CRP 41.7. I was informed by the charge nurse that the lab recommended repeat blood draw because they believe that these tests results are not accurate. Therefore, I do not distal treatments for correction of electrolytes. We sent a second set of blood work. The patient is still waiting for the pelvic CT. Abdominal and pelvic CT impression: 1. The gallbladder is distended, without discrete gallstones. Clinical correlation and possible ultrasonography recommended. 2. There is mild stranding of the mid abdominal mesentery, suggestive of mesenteric panniculitis. This stranding extends to the peripancreatic region. Correlation with pancreatic enzymes is recommended to exclude pancreatitis. 3. Mesenteric lymph nodes are identified within the right lower quadrant, a few which are mildly enlarged. Mesenteric adenitis is considered. 4. Additional findings described above. I was able to draw blood and send it to the lab. At this time, the patient is awaiting for repeat blood work, RUQ U/S and disposition. Patient will be signed out to Dr. Haddad. - Diagnoses Provider Diagnoses: Abdominal pain, Diarrhea, Mesenteric adenitis, Hypokalemia, Fever - Critical Care Time Critical Care Statement: Critical care time is provided exclusive of any time spent performing procedures. Discharge ED - Sign-Out/Discharge Documenting (check all that apply): Sign-Out Patient Signing out patient TO: Aly Haddad - Patient is a sign-out to Dr. Boo MD, at 1900 on 08/25/2019, pending repeat labs, Abd US, and disposition. - Discharge Plan Condition: Stable Disposition: HOME Patient Education Materials: Fever in Adults (ED), Hypokalemia (ED), Acute Diarrhea (ED), Mesenteric Adenitis (ED) Referrals: Lorene Roach MD [Primary Care Provider] - 3 Days Additional Instructions: Follow-up with your PCP in 2-3 days. Drink Gatorade, Powerade, and broth. Also eat bananas and avocados. Return to the emergency department for changing or worsening symptoms. - Billing Disposition and Condition Condition: STABLE - Attestation Statements Document Initiated by Mike: Yes Documenting Scribe: Annette Mccarthy Provider For Whom Mike is Documenting (Include Credential): Devang Camacho MD Scribe Attestation: Annette Zhang, scribed for Devang Camacho MD on 08/26/19 at 0707. Scribe Documentation Reviewed: Yes Provider Attestation: The documentation as recorded by the scribeAnnette accurately reflects the service I personally performed and the decisions made by me, Devang Camacho MD Status of Scribe Document: Viewed
--- OUTSIDE RECORDS SUMMARY | 2019-08-25 16:00 | XMS REPORT | Continuity of Care Document ---
:1965 External Reference #:[id number] Author Name Lorene Roach M.D. 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 Onset: 04/22/2015 Asthma Lorene Roach M.D. Onset: 05/09/2017 Sleep apnea Lorene Roach M.D. Onset: 05/09/2017 Rheumatoid arthritis Lorene Roach M.D. Onset: 07/31/2019 Social History Type Date Description Comments Sex Unknown Tobacco Use Start: Unknown Never Smoked Cigarettes ETOH Use Drinks 5 Alcoholic Beverages Per Week Tobacco Use Start: Unknown Patient has never smoked Recreational Drug Use Denies Drug Use Smoking Status Reviewed: 06/30/19 Patient has never smoked Exercise Type/Frequency Walks 2 times a week Exercise Type/Frequency Exercises sporadically Allergies, Adverse Reactions, Alerts Active Allergies Reaction Severity Comments Date Penicillins rash Moderate 11/16/2009 Medications Active Medications SIG Qnty Indications Ordering Date Provider Amlodipine Besylate 1 by mouth every 90tabs Lorene 07/31/2019 mignon Roach M.D. 10mg Tablets Methotrexate Sodium inject 20mg (0.8mL) 6ml M06.9 Walter Daniel, 2019 weekly for the MD 50mg/2ML Solution first two weeks then increase to 25mg (1mL) weekly thereafter BD Insulin Syringe Use with 30units M06.9 Walter Daniel, 06/30/2019 Microfine/U-100/1ML methotrexate MD /28G X 1/2" 28G X 1/2" 1 ML Misc Omeprazole Take one cap by 90caps K21.9 Walter Daniel, 05/08/2019 40mg mouth daily MD Capsules DR Vitamin D3 Take one cap by 12caps E55.9 Walter Daniel, 04/17/2019 1.25mg mouth Weekly for 12 MD (99433 Ut) Capsules weeks Fluticasone Inhale One puff By 60units J45.909 Lorene 04/16/2019 Propionate/Salmeter Mouth Twice A Day Savannah Roach ol Diskus 100-50mcg/Dose Aerosol Folic Acid take one tab by 90tabs M06.9 Walter Daniel, 04/14/2019 1mg mouth daily except MD Tablets the day you take methotrexate Shingrix Vaccination 1units M06.9 Walter Daniel, 04/14/2019 50mcg/0.5ML Suspension Rec Ibuprofen 2 PO q 6h prn Lorene 03/23/2019 200mg Savannah Roach Tablets Valsartan-Hydrochlo Take One Tablet By 90tabs Lorene 04/22/2015 rothiazide Mouth Every Day Savannah Roach 160-25mg Tablets Proair HFA Inhale Two Puffs By 8.5units Lorene 09/01/2013 Mouth Every 4 Hours Savannah Roach 108(90Base) mcg/Act as Needed Aerosol Vitamin B-12 1 by mouth every Unknown 500mcg day Lozenges History Medications Methotrexate take 3 tablets by 72tabs M06.9 Walter Daniel, 04/21/2019 - 2.5mg mouth once weekly 06/30/2019 Tablets on week 1, then take 6 tablets by mouth every week thereafter Prednisone Take three tabs by 90tabs M06.9 Walter Daniel, 04/14/2019 - 5mg Tablets mouth daily for 05/29/2019 three days, two tabs by mouth daily for two weeks, one tab by mouth daily for three weeks Medications Administered in Office Medication SIG Qnty Indications Ordering Provider Date No Injection Nurse Visit Ccmob 07/03/2019 Injection Immunizations CPT Code Status Date Vaccine Lot # [id number] Given 01/24/2019 Influenza Virus Vaccine, Quadrivalent, Split, Preservative Free 32360 Given 02/05/2018 Influenza Virus Vaccine, Quadrivalent, Split, Preservative Free 39770 Given 02/03/2017 Influenza Virus Vaccine, Quadrivalent, Split, Preservative Free 28099 Given 01/11/2014 Pneumonia Vaccine [id number] Q2037 Given 02/25/2012 Fluvirin Im 3Yrs And Older [id number] 14655 Given 02/25/2012 Tdap - Tetanus/Diptheria/Acellular Pertussis [id number] 62522 Given 02/05/2010 Influenza Virus 3Yrs & Over 17001 Given 02/14/2009 Influenza Virus 3Yrs & Over Vital Signs Date Vital Result Comment 06/30/2019 8:36am Height 60 inches 5'0" Weight 215.00 lb Heart Rate 81 /min BP Systolic 148 mmHg before BP meds BP Diastolic 94 mmHg before BP meds Body Temperature 96.8 F Pain Level 2 O2 % BldC Oximetry 97 % BMI (Body Mass Index) 42.0 kg/m2 05/30/2019 3:55pm Height 60 inches 5'0" Weight 215.00 lb Heart Rate 73 /min BP Systolic 127 mmHg BP Diastolic 87 mmHg Body Temperature 97.5 F Pain Level 3 O2 % BldC Oximetry 97 % BMI (Body Mass Index) 42.0 kg/m2 Results Test Acquired Date Facility Test Result H/L Range Note CBC Auto 07/26/2019 [facility] White Blood 6.0 10^3/uL Normal 3.5-10.[address] [place] [address] [phone] Red Blood Count 4.67 10^6/uL Normal 3.70-4.87 Hemoglobin 13.0 g/dL Normal 12.0-16.0 Hematocrit 38 % Normal 35-47 Mean Corpuscular Volume 82 fL Normal 80-97 Mean Corpuscular Hemoglobin 28 pg Normal 27-31 Mean Corpuscular HGB Conc 34 g/dL Normal 31-36 Red Cell Distribution Width 16 % High 10-15 Platelet Count 395 10^3/uL Normal 150-450 Mean Platelet Volume 7.4 fL Normal 7.4-10.4 Abs Neutrophils 3.5 10^3/uL Normal 1.5-7.7 Abs Lymphocytes 1.7 10^3/uL Normal 1.0-4.8 Abs Monocytes 0.3 10^3/uL Normal 0-0.8 Abs Eosinophils 0.3 10^3/uL Normal 0-0.6 Abs Basophils 0.1 10^3/uL Normal 0-0.2 Abs Nucleated RBC 0.0 10^3/uL Granulocyte % 59.4 % Lymphocyte % 29.2 % Monocyte % 5.4 % Eosinophil % 5.1 % Basophil % 0.9 % Nucleated Red Blood Cells % 0.1 Comp Metabolic 07/26/2019 [facility] Sodium 137 mmol/L Normal 135-[address] [place] [address] [phone] Potassium 4.2 mmol/L Normal 3.5-5.0 Chloride 96 mmol/L Low 101-111 Co2 Carbon Dioxide 32 mmol/L Normal 22-32 Anion Gap 9 mmol/L Normal 2-11 Glucose 102 mg/dL High 70-100 Blood Urea Nitrogen 15 mg/dL Normal 6-24 Creatinine 0.69 mg/dL Normal 0.51-0.95 BUN/Creatinine Ratio 21.7 High 8-20 Calcium 9.8 mg/dL Normal 8.6-10.3 Total Protein 6.9 g/dL Normal 6.4-8.9 Albumin 4.2 g/dL Normal 3.2-5.2 Globulin 2.7 g/dL Normal 2-4 Albumin/Globulin Ratio 1.6 Normal 1-3 Total Bilirubin 0.60 mg/dL Normal 0.2-1.0 Alkaline Phosphatase 84 U/L Normal 34-104 Alt 19 U/L Normal 7-52 Ast 14 U/L Normal 13-39 Egfr Non- 88.7 >60 Egfr 107.3 >60 1 Laboratory test 07/26/2019 [facility] C Reactive 6.14 mg/L Normal <8.[address] [place] [address] [phone] Erythrocyte Sed Rate 25 mm/Hr Normal 0-29 CBC Auto 05/30/2019 [facility] White Blood 6.6 10^3/uL Normal 3.5-10.[address] [place] [address] [phone] Red Blood Count 4.97 10^6/uL High 3.70-4.87 Hemoglobin 13.5 g/dL Normal 12.0-16.0 Hematocrit 40 % Normal 35-47 Mean Corpuscular Volume 81 fL Normal 80-97 Mean Corpuscular Hemoglobin 27 pg Normal 27-31 Mean Corpuscular HGB Conc 34 g/dL Normal 31-36 Red Cell Distribution Width 15 % Normal 10-15 Platelet Count 395 10^3/uL Normal 150-450 Mean Platelet Volume 7.3 fL Low 7.4-10.4 Abs Neutrophils 3.9 10^3/uL Normal 1.5-7.7 Abs Lymphocytes 2.0 10^3/uL Normal 1.0-4.8 Abs Monocytes 0.4 10^3/uL Normal 0-0.8 Abs Eosinophils 0.2 10^3/uL Normal 0-0.6 Abs Basophils 0.1 10^3/uL Normal 0-0.2 Abs Nucleated RBC 0.0 10^3/uL Granulocyte % 58.4 % Lymphocyte % 30.6 % Monocyte % 6.7 % Eosinophil % 3.1 % Basophil % 1.2 % Nucleated Red Blood Cells % 0.1 Comp Metabolic 05/30/2019 [facility] Sodium 137 mmol/L Normal 135-[address] [place] [address] [phone] Potassium 3.9 mmol/L Normal 3.5-5.0 Chloride 98 mmol/L Low 101-111 Co2 Carbon Dioxide 29 mmol/L Normal 22-32 Anion Gap 10 mmol/L Normal 2-11 Glucose 85 mg/dL Normal 70-100 Blood Urea Nitrogen 15 mg/dL Normal 6-24 Creatinine 0.75 mg/dL Normal 0.51-0.95 BUN/Creatinine Ratio 20.0 Normal 8-20 Calcium 9.9 mg/dL Normal 8.6-10.3 Total Protein 7.4 g/dL Normal 6.4-8.9 Albumin 4.4 g/dL Normal 3.2-5.2 Globulin 3.0 g/dL Normal 2-4 Albumin/Globulin Ratio 1.5 Normal 1-3 Total Bilirubin 0.30 mg/dL Normal 0.2-1.0 Alkaline Phosphatase 85 U/L Normal 34-104 Alt 20 U/L Normal 7-52 Ast 15 U/L Normal 13-39 Egfr Non- 80.5 >60 Egfr 97.4 >60 2 Laboratory test 05/30/2019 [facility] Erythrocyte Sed 24 mm/Hr Normal 0-[address] [place] [address] [phone] C Reactive Protein 7.37 mg/L Normal <8.01 Vitamin B12 05/30/2019 [facility] Vitamin B12 624 pg/mL Normal 180-9[address] [place] [address] [phone] Folic Acid (Folate) > 20.00 ng/mL >3.99 Laboratory test 04/14/2019 [facility] Vitamin D 9.7 ng/mL Low 20-[address] Total 25(Oh) [place] [address] [phone] Vitamin B12 And 04/14/2019 [facility] Vitamin B12 668 pg/mL Normal 180-914 [address] [place] [address] [phone] Folic Acid (Folate) 8.31 ng/mL >3.99 Laboratory test 04/14/2019 [facility] Hepatitis B Not Immune Abnormal Immune finding [address] [place] [address] [phone] Hepatitis B Core AB Total Negative Negative 6 Hepatitis C Antibody 04/14/2019 [facility] HCV Index 0.03 s/c [address] [place] [address] [phone] Hepatitis C Antibody Negative Negative Quantiferon-TB 04/14/2019 [facility] QuantiferonTb Negative Negative [address] [place] [address] [phone] TB1 Ag minus Nil Result -0.01 IU/mL TB2 Ag minus Nil Result -0.01 IU/mL Mitogen minus Nil Result 6.83 IU/mL Nil Result 0.05 IU/mL Laboratory test 04/14/2019 [facility] Erythrocyte Sed 34 mm/Hr High 0-[address] [place] [address] [phone] C Reactive Protein 9.41 mg/L High <8.01 Rheumatoid Factor 104 IU/mL High <15 CBC Auto 03/25/2019 [facility] White Blood 6.3 10^3/uL Normal 3.5-10.[address] [place] [address] [phone] Red Blood Count 5.03 10^6/uL High 3.70-4.87 Hemoglobin 13.4 g/dL Normal 12.0-16.0 Hematocrit 40 % Normal 35-47 Mean Corpuscular Volume 79 fL Low 80-97 Mean Corpuscular Hemoglobin 27 pg Normal 27-31 Mean Corpuscular HGB Conc 34 g/dL Normal 31-36 Red Cell Distribution Width 14 % Normal 10-15 Platelet Count 383 10^3/uL Normal 150-450 Mean Platelet Volume 7.1 fL Low 7.4-10.4 Abs Neutrophils 3.9 10^3/uL Normal 1.5-7.7 Abs Lymphocytes 1.6 10^3/uL Normal 1.0-4.8 Abs Monocytes 0.4 10^3/uL Normal 0-0.8 Abs Eosinophils 0.4 10^3/uL Normal 0-0.6 Abs Basophils 0.0 10^3/uL Normal 0-0.2 Abs Nucleated RBC 0.0 10^3/uL Granulocyte % 61.6 % Lymphocyte % 24.7 % Monocyte % 6.3 % Eosinophil % 6.7 % Basophil % 0.7 % Nucleated Red Blood Cells % 0.1 Laboratory test 03/25/2019 [facility] C Reactive 6.37 mg/L Normal <8.[address] [place] [address] [phone] Erythrocyte Sed Rate 19 mm/Hr Normal 0-29 Cyclic Citrullinated Pep Igg 207.4 U Abnormal 8 Comp Metabolic 03/25/2019 [facility] Sodium 140 mmol/L Normal 135-[address] [place] [address] [phone] Potassium 4.3 mmol/L Normal 3.5-5.0 Chloride 103 mmol/L Normal 101-111 Co2 Carbon Dioxide 30 mmol/L Normal 22-32 Anion Gap 7 mmol/L Normal 2-11 Glucose 104 mg/dL High 70-100 Blood Urea Nitrogen 14 mg/dL Normal 6-24 Creatinine 0.72 mg/dL Normal 0.51-0.95 BUN/Creatinine Ratio 19.4 Normal 8-20 Calcium 9.9 mg/dL Normal 8.6-10.3 Total Protein 6.8 g/dL Normal 6.4-8.9 Albumin 3.9 g/dL Normal 3.2-5.2 Globulin 2.9 g/dL Normal 2-4 Albumin/Globulin Ratio 1.3 Normal 1-3 Total Bilirubin 0.60 mg/dL Normal 0.2-1.0 Alkaline Phosphatase 78 U/L Normal 34-104 Alt 18 U/L Normal 7-52 Ast 14 U/L Normal 13-39 Egfr Non- 84.4 >60 Egfr 102.1 >60 9 Lipid Profile 03/25/2019 [facility] Triglycerides 129 mg/dL 10 (Trig/Chol/HDL) [address] [place] [address] [phone] Cholesterol 193 mg/dL 11 HDL Cholesterol 59.3 mg/dL 12 LDL Cholesterol 108 mg/dL 13 Laboratory test 03/25/2019 [facility] Hemoglobin A1c 5.9 % High 4.0-5.6 [address] (Glyco HGB) [place] [address] [phone] Vitamin B12 642 pg/mL Normal 180-914 15 Uric Acid 7.7 mg/dL High 2.3-6.6 1 Because ethnic data is not always readily [...] 15-29 5 Kidney failure <15 (or dialysis) 2 Because ethnic data is not always readily [...] 15-29 5 Kidney failure <15 (or dialysis) 3 Normal Range 180 to 914 Indeterminate Range 145 to 180 Deficient Range <145 4 Total 25-Hydroxyvitamin D2 and D3 (25-OH-VitD) <10 ng/mL (severe deficiency) 10-19 ng/mL (mild to moderate deficiency) 20-50 ng/mL (optimum levels) 51-80 ng/mL (increased risk of hypercalciuria) >80 ng/mL (toxicity possible) 5 Normal Range 180 to 914 Indeterminate Range 145 to 180 Deficient Range <145 6 Test Performed by: [facility] [place] [address] [employer]: Carlos Cool M.D. Ph.D.; CLIA# [id number] 7 M. tuberculosis infection NOT likely 8 Interpretation: Strong Positive (>=60.0) REFERENCE VALUE <20.0 (Negative) Test Performed by: [facility] [place] [address] [employer]: Carlos Cool M.D. Ph.D.; CLIA# [id number] 9 Because ethnic data is not always readily [...] 15-29 5 Kidney failure <15 (or dialysis) 10 Desirable: <150 Borderline High: 150-199 High: 200-499 Very High: >500 11 Desirable: <200 Borderline High: 200-239 High: >239 12 Low: <40 Desirable: 40-60 High: >60 13 Desirable: <100 Near Optimal: 100-129 Borderline High: 130-159 High: 160-189 Very High: >189 14 Therapeutic target for the treatment of diabetes mellitus patients is <7% HBA1C, and in selective patients <6.0%. Please refer to [place] [employer] diabetic care guidelines for further information. 15 Normal Range 180 to 914 Indeterminate Range 145 to 180 Deficient Range <145 Procedures Date Code Description Status 10/25/2018 [id number] Mammogram Completed 07/06/2017 [id number] Mammogram Completed 04/07/2016 [id number] Mammogram Completed 02/18/2016 [id number] Colonoscopy Completed 12/26/2014 [id number] Mammogram Completed 10/05/2013 [id number] Mammogram Completed 09/15/2012 [id number] Mammogram Completed Medical Devices Description No Information Available Encounters Type Date Location Provider Dx Diagnosis Office Visit 07/31/2019 [facility] Jaior Roach, F41.9 An[facility] disorder[facility] I10 Essential (primary) hypertension Office Visit 07/03/2019 9:15a Rheumatology Nurse Visit M06.9 [facility] Aysha arthritis, Ccmob unspecified Office Visit 06/30/2019 8:30a Rheumatology Walter M06.9 [facility] Daniel MD arthritis, Ccmob unspecified Z79.899 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 M25.571 Pain in right ankle and joints of right foot Office Visit 05/30/2019 4:00p Rheumatology Walter M06.9 [facility] Daniel MD arthritis, Ccmob unspecified E55.9 Vitamin D deficiency, unspecified R53.83 Other fatigue Office Visit 04/14/2019 2:00p Rheumatology Walter M06.9 [facility] MD arthritis, Ccmob unspecified Z79.899 Other residential (current) drug therapy M25.532 Pain in left wrist M25.571 Pain in right ankle and joints of right foot R53.83 Other fatigue Office Visit 03/23/2019 3:40p [facility] Internal Lorene M13.0 Polyarthritis, Carolina Roach M.D. unspecified Ccmob I10 Essential (primary) hypertension R73.01 Impaired fasting glucose E53.8 Deficiency of other specified B group vitamins Assessments Date Code Description Provider 07/31/2019 F41.9 Anxiety disorder, unspecified Lorene Roach M.D. 07/31/2019 I10 Essential (primary) hypertension Lorene Roach M.D. 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 03/23/2019 I10 Essential (primary) hypertension Lorene Roach M.D. 03/23/2019 R73.01 Impaired fasting glucose Lorene Roach M.D. 03/23/2019 E53.8 Deficiency of other specified B group Lorene Roach M.D. vitamins Plan of Treatment Future Appointment(s):08/22/2019 8:30 am - Gelacio Stephens MD at [facility] Wsezbljpvdu31/21/2020 8:00 am - Walter Daniel MD at [facility] - [facility]09/21/2019 8:40 am - Lorene Roach M.D. at [facility] Internal Medicine - [facility]07/31/2019 - Lorene Roach M.D.F41.9 Anxiety disorder, [id number] Essential (primary) hypertensionComments:Increase the amlodipine to 10 mg dailySend me BP numbers through the portal in about 2-3 weekscall if problems Functional Status Description No Information Available Mental Status Description No Information Available Referrals Refer to Reason for Referral Status Appt Date María Watson MD Sent 04/14/2019 [address], [place] [address] [phone]
--- OUTSIDE RECORDS SUMMARY | 2019-08-25 16:00 | XMS REPORT | Continuity of Care Document ---
:1965 External Reference #:[id number] Author Name Walter Daniel MD (transmitted by agent of provider Deepti Taylor) Address [address] [place] [address] Care Team Providers Name Role Phone Anabel Childress MD - Internal Care Team Information Gang Tailer [phone] Medicine Lorene Roach MD - Internal Care Team Information Gang Tailer Medicine María Watson MD - Rheumatology Care Team Information Gang Tailer Problems Active Problems Provider Date Essential hypertension Lorene Roach M.D. Onset: 04/22/2015 Asthma Lorene Roach M.D. Onset: 05/09/2017 Sleep apnea Lorene Roach M.D. Onset: 05/09/2017 Social History Type Date Description Comments Sex [...] Medications SIG Qnty Indications Ordering Date Provider Methotrexate Sodium inject 20mg (0.8mL) 6ml M06.Elyse Daniel, 2019 weekly for the 50mg/2ML Solution first two weeks then increase [...] 04/17/2019 1.25mg mouth Weekly for 12 MD (30692 Ut) Capsules weeks Fluticasone Inhale One puff By 60units J45.909 Lorene 04/16/2019 Propionate/Salmeter Mouth Twice A Day Savannah Roach ol Diskus 100-50mcg/Dose Aerosol Folic Acid take one tab by 90tabs M06.9 Walter Daniel, 04/14/2019 1mg mouth daily except MD Tablets the day you take methotrexate Shingrix Vaccination 1units M06.9 Walter Daniel, 04/14/2019 MD 50mcg/0.5ML Suspension Rec Ibuprofen 2 PO q 6h prn Lorene 03/23/2019 200mg Savannah Roach Tablets Amlodipine Besylate take one tablet by 90tabs Lorene 06/17/2016 mouth once daily Savannah Roach 5mg Tablets Valsartan-Hydrochlo Take One Tablet By 90tabs [...] Daniel, 04/21/2019 - 2.5mg mouth once weekly MD 06/30/2019 Tablets on week 1, then take 6 tablets by mouth every week thereafter Prednisone Take three tabs by 90tabs M06.9 Walter Daniel, 04/14/2019 - 5mg Tablets mouth daily for MD 05/29/2019 three days, two tabs by mouth daily for two weeks, one tab by mouth daily for three weeks Immunizations CPT Code Status Date Vaccine Lot # [id number] Given 01/24/2019 Influenza Virus Vaccine, Quadrivalent, Split, Preservative Free [id number] Given 02/05/2018 Influenza Virus Vaccine, Quadrivalent, Split, Preservative Free 90230 Given 02/03/2017 Influenza Virus Vaccine, Quadrivalent, Split, Preservative Free 34912 Given 01/11/2014 Pneumonia Vaccine [id number] Given 02/25/2012 Fluvirin Im 3Yrs And Older [id number] Given 02/25/2012 Tdap - Tetanus/Diptheria/Acellular Pertussis [id number] Given 02/05/2010 Influenza Virus 3Yrs & Over 71840 Given 02/14/2009 Influenza Virus 3Yrs & Over [...] Test Result H/L Range Note CBC Auto 05/30/2019 [facility] White Blood 6.6 10^3/uL Normal 3.5-10.[address] [place] [address] [phone] Red Blood Count 4.97 10^6/uL High 3.70-4.87 [...] Blood Cells % 0.1 Comp Metabolic 05/30/2019 [facility] Sodium 137 mmol/L Normal 135-[address] [place] [address] [phone] Potassium 3.9 mmol/L Normal 3.5-5.0 Chloride 98 [...] Egfr Non- 80.5 >60 Egfr 97.4 >60 1 Laboratory test 05/30/2019 [facility] Erythrocyte Sed 24 mm/Hr Normal 0-[address] [place] [address] [phone] C Reactive Protein 7.37 mg/L Normal <8.01 Vitamin B12 05/30/2019 [facility] Vitamin B12 624 pg/mL Normal 180-914 [address] [place] [address] [phone] Folic Acid (Folate) > 20.00 ng/mL >3.99 Laboratory test 04/14/2019 [facility] Vitamin D 9.7 ng/mL Low 20-50 [address] Total 25(Oh) [place], [place] [address] [phone] Vitamin B12 And 04/14/2019 [facility] Vitamin B12 668 pg/mL Normal 180-914 [address] [place] [address] [phone] Folic Acid (Folate) 8.31 ng/mL >3.99 Laboratory test 04/14/2019 [facility] Hepatitis B Not Immune Abnormal Immune finding [address] [place] [address] [phone] Hepatitis B Core AB Total Negative Negative 5 Hepatitis C Antibody 04/14/2019 [facility] HCV Index 0.03 s/c [address] [place] [address] [phone] Hepatitis C Antibody Negative Negative Quantiferon-TB 04/14/2019 [facility] QuantiferonTb Negative Negative [address] [place] [address] [phone] TB1 Ag minus Nil Result -0.01 IU/mL TB2 Ag minus Nil Result -0.01 IU/mL Mitogen minus Nil Result 6.83 IU/mL Nil Result 0.05 IU/mL Laboratory test 04/14/2019 [facility] Erythrocyte Sed 34 mm/Hr High 0-[address] [place] [address] [phone] C Reactive Protein 9.41 mg/L High <8.01 Rheumatoid Factor 104 IU/mL High <15 CBC Auto 03/25/2019 [facility] White Blood 6.3 10^3/uL Normal 3.5-10.[address] [place] [place] [address] [phone] Red Blood Count 5.03 10^6/uL High 3.70-4.87 [...] Blood Cells % 0.1 Laboratory test 03/25/2019 [facility] C Reactive 6.37 mg/L Normal <8.[address] [place] [address] [phone] Erythrocyte Sed Rate 19 mm/Hr Normal 0-29 Cyclic Citrullinated Pep Igg 207.4 U Abnormal 7 Comp Metabolic 03/25/2019 [facility] Sodium 140 mmol/L Normal 135-[address] [place] [address] [phone] Potassium 4.3 mmol/L Normal 3.5-5.0 Chloride 103 [...] Egfr Non- 84.4 >60 Egfr 102.1 >60 8 Lipid Profile 03/25/2019 [facility] Triglycerides 129 mg/dL 9 (Trig/Chol/HDL) [address] [place] [address] [phone] Cholesterol 193 mg/dL 10 HDL Cholesterol 59.3 mg/dL 11 LDL Cholesterol 108 mg/dL 12 Laboratory test 03/25/2019 [facility] Hemoglobin A1c 5.9 % High 4.0-5.6 13 finding [address] [facility] (Glyco HGB) [place] [address] [phone] Vitamin B12 642 pg/mL Normal 180-914 14 Uric Acid 7.7 mg/dL High 2.3-6.6 1 [...] 5 Kidney failure <15 (or dialysis) 2 Normal Range 180 to 914 Indeterminate Range 145 to 180 Deficient Range <145 3 Total 25-Hydroxyvitamin D2 and D3 (25-OH-VitD) <10 ng/mL (severe deficiency) 10-19 ng/mL (mild to moderate deficiency) 20-50 ng/mL (optimum levels) 51-80 ng/mL (increased risk of hypercalciuria) >80 ng/mL (toxicity possible) 4 Normal Range 180 to 914 Indeterminate Range 145 to 180 Deficient Range <145 5 Test Performed by: [facility] [address] [place] [address] Clinical Appeals Auditor: Carlos Cool M.D. Ph.D.; CLIA# [id number] 6 M. tuberculosis infection NOT likely 7 Interpretation: Strong Positive (>=60.0) REFERENCE VALUE <20.0 (Negative) Test Performed by: [facility] [address] [place] [address] Clinical Appeals Auditor: Carlos Cool M.D. Ph.D.; IA# [id number] 8 Because ethnic data is not always readily [...] 15-29 5 Kidney failure <15 (or dialysis) 9 Desirable: <150 Borderline High: 150-199 High: 200-499 Very High: >500 10 Desirable: <200 Borderline High: 200-239 High: >239 11 Low: <40 Desirable: 40-60 High: >60 12 Desirable: <100 Near Optimal: 100-129 Borderline High: 130-159 High: 160-189 Very High: >189 13 Therapeutic target for the treatment of diabetes mellitus patients is <7% HBA1C, and in selective patients <6.0%. Please refer to [place] Diabetes [employer] diabetic care guidelines for further information. 14 Normal Range 180 to 914 Indeterminate Range 145 to 180 Deficient Range <145 Procedures Date Code Description Status 10/25/2018 [id number] Mammogram Completed 07/06/2017 [id number] Mammogram Completed 04/07/2016 [id number] Mammogram Completed 02/18/2016 [id number] Colonoscopy Completed 12/26/2014 [id number] Mammogram Completed 10/05/2013 [id number] Mammogram Completed 09/15/2012 [id number] Mammogram Completed Medical Devices Description No Information Available Encounters Type Date Location Provider Dx Diagnosis Office Visit 06/30/2019 Rheumatology Walter Daniel, M06.9 Rheumatoid 8:[facility] arthritis, Ccmob unspecified Z79.899 Other senior care (current) drug therapy M25.571 Pain in right ankle and joints of right foot Office Visit 05/30/2019 4:00p Rheumatology Walter M06.9 [facility] MD arthritis, Ccmob unspecified E55.9 Vitamin D deficiency, unspecified R53.83 Other fatigue Office Visit 04/14/2019 2:00p Rheumatology Walter M06.9 [facility] MD arthritis, Ccmob unspecified Z79.899 Other senior care (current) drug therapy M25.532 Pain in left wrist M25.571 Pain in right ankle and joints of right foot R53.83 Other fatigue Office Visit 03/23/2019 3:40p [facility] Lorene M13.0 Polyarthritis, Carolina Roach M.D. 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 vitamins Plan of Treatment Future Appointment(s):08/29/2019 8:00 am - Walter Daniel MD at [facility]07/03/2019 9:15 am - Nurse Visit [facility] at [facility]09/21/2019 8:40 am - Lorene Roach M.D. at [facility]06/30/2019 - Walter Daniel, MDM06.9 Rheumatoid arthritis, unspecifiedNew Medication:Methotrexate Sodium 50 mg/2ML - inject 20mg (0.8mL) weekly for the first two weeks then increase to 25mg (1mL) weekly thereafterBD Insulin Syringe Microfine/U-100/1ML/28G X 1/2" 28 G X 1/2" 1 ML - Use with methotrexateComments:Week of july 23 labsFollow up:8 weeks Please se up Wednesday nurse visit for MTX [id number] Other termite treater helper ( current) drug ljvciscW22.571 Pain in right ankle and joints of right foot Functional Status Description No Information Available Mental Status Description No Information Available Referrals Refer to Dr Reason for Referral Status Appt Date María Watson MD Sent 04/14/2019 [address], [place] [address] [phone]
[2019-08-25 16:02] LABS: Urine Appearance Clear; Urine Bilirubin Negative (Negative); Urine Blood 1+ (Negative); Urine Color Straw; Urine Glucose Negative (Negative); Urine Ketones Negative (Negative); Urine Nitrite Negative (Negative); Urine Protein Negative (Negative); Urine Specific Gravity 1.004 (1.010-1.030); Urine Urobilinogen Negative (Negative)
[2019-08-25 16:14] LABS: Urine Bacteria Absent (Absent); Urine Red Blood Cell Trace(0-2/hpf) (Absent); Urine Squamous Epithelial Cell Present (Absent); Urine White Blood Cell Trace(0-5/hpf) (Absent)
[2019-08-25 17:27] LABS: ABS Eosinophils 0.2 10^3/ul (0-0.6); ABS Lymphocytes 0.7 10^3/ul (1.0-4.8); ABS Monocytes 0.5 10^3/ul (0-0.8); ABS Neutrophils 3.6 10^3/ul (1.5-7.7); Eosinophil % 3.1 %; Hematocrit 26 % (35-47); Hemoglobin 8.9 g/dL (12.0-16.0); Lymphocyte % 14.7 %; Mean Corpuscular HGB Conc 34 g/dL (31-36); Mean Corpuscular Hemoglobin 28 pg (27-31); Mean Corpuscular Volume 83 fL (80-97); Mean Platelet Volume 6.4 fL (7.4-10.4); Platelet Count 346 10^3/uL (150-450); Red Blood Count 3.19 10^6 /uL (3.70-4.87); Red Cell Distribution Width 15 % (10-15); White Blood Count 5.1 10^3/uL (3.5-10.8)
[2019-08-25 17:35] LABS: Activated Partial Thrombo Time 32.6 seconds (26.0-38.0); INR 1.38 (0.82-1.09)
[2019-08-25 17:43] LABS: Albumin 2.5 g/dL (3.2-5.2); Albumin/Globulin Ratio 1.3 (1-3); C Reactive Protein 41.76 mg/L (<8.01); EGFR African American 185.2 (>60); Globulin 1.9 g/dL (2-4); Total Bilirubin 0.4 mg/dL (0.2-1.0); Total Protein 4.4 g/dL (6.4-8.9)
[2019-08-25 17:52] LABS: Calcium 5.8 mg/dL (8.6-10.3)
[2019-08-25] MEDS ORDERED: Iodixanol* (CONTRAST) 320 MG/ML 100 ML SDV IV ONE (17:52)
--- NOTE | 2019-08-25 19:18 | ED ---
Progress - Progress Note Progress Note: Patient signed out by Dr. Camacho to Dr. Haddad at 19:00 on 08/25/2019 pending repeat labs, abdomen ultrasound, and disposition. Abdomen Ultrasound Impression: 1. Cholelithiasis. The gallbladder is distended. Clinical correlation recommended. 2. The liver is mildly increased in echogenicity, most commonly due to fatty infiltration, but other chronic liver diseases may have a similar appearance. 3. Additional findings described above. ED physician has reviewed this report. Re-Evaluation - Re-Evaluation First Eval Re-Evaluation Time: 16:30 Comment: Nurse unable to obtain IV access or lab work. Second Eval Re-Evaluation Time: 18:55 Comment: More blood obtained for repeat labs. Third Eval Re-Evaluation Time: 20:00 Change: Improved Comment: The patient has no significant pain. Differential diagnoses: Viral gastroenteritis, infectious diarrhea, colitis. Course/Dx - Course Course Of Treatment: Patient signed out by Dr. Camacho to Dr. Haddad at 19:00 on pending repeat labs, abdomen ultrasound, and disposition. Laboratory results with no significant abnormalities except for an Hgb of 11.9, plt count of 469, MPV of 6.7, potassium of 2.8, chloride of 97, INR of 1.38, and glucose of 109. Abdomen Ultrasound reveals, per radiologist, 1. Cholelithiasis. The gallbladder is distended. Clinical correlation recommended. 2. The liver is mildly increased in echogenicity, most commonly due to fatty infiltration, but other chronic liver diseases may have a similar appearance. 3. Additional findings described above. Patient will be discharged with follow up from Dr. Roach. The patient is agreeable with this plan. - Diagnoses Provider Diagnoses: Abdominal pain, Diarrhea, Mesenteric adenitis, Hypokalemia, Fever - Critical Care Time Critical Care Time: 30-74 min - 45 minutes Critical Care Statement: Critical care time is provided exclusive of any time spent performing procedures. Discharge ED - Sign-Out/Discharge Documenting (check all that apply): Patient Departure, Receiving Sign-Out Receiving patient FROM: Devang Camacho - Pending repeat labs, abdomen ultrasound, and disposition. - Discharge Plan Condition: Stable Disposition: HOME Prescriptions: Azithromycin 500 mg Tab 500 mg PO DAILY #3 tablet Patient Education Materials: Fever in Adults (ED), Hypokalemia (ED), Acute Diarrhea (ED), Mesenteric Adenitis (ED) Referrals: Lorene Roach MD [Primary Care Provider] - 3 Days Additional Instructions: Follow-up with your PCP in 2-3 days. Drink Gatorade, Powerade, and broth. Also eat bananas and avocados. Return to the emergency department for changing or worsening symptoms. - Billing Disposition and Condition Condition: STABLE Disposition: Home - Attestation Statements Document Initiated by Scribe: Yes Documenting Scribe: Angie Briones Provider For Whom Scribe is Documenting (Include Credential): Aly Haddad MD Scribe Attestation: Angie Zhang scribed for Aly Haddad MD on 08/30/19 at 0753. Scribe Documentation Reviewed: Yes Provider Attestation: The documentation as recorded by the chikiibAngie reina accurately reflects the service I personally performed and the decisions made by Aly zhang MD Status of Scribe Document: Viewed
[2019-08-25 19:20] LABS: Hematocrit 35 % (35-47); Hemoglobin 11.9 g/dL (12.0-16.0); Mean Corpuscular HGB Conc 34 g/dL (31-36); Mean Corpuscular Hemoglobin 28 pg (27-31); Mean Corpuscular Volume 82 fL (80-97); Mean Platelet Volume 6.7 fL (7.4-10.4); Platelet Count 469 10^3/uL (150-450); Red Blood Count 4.26 10^6 /uL (3.70-4.87); Red Cell Distribution Width 15 % (10-15); White Blood Count 5.8 10^3/uL (3.5-10.8)
[2019-08-25 19:25] LABS: Calcium 9.5 mg/dL (8.6-10.3); Potassium 2.8 mmol/L (3.5-5.0)
[2019-08-25 19:31] LABS: BUN/Creatinine Ratio 9.9 (8-20); EGFR African American 89.2 (>60); EGFR Non-African American 73.7 (>60)
[2019-08-25] MEDS ORDERED: Potassium Chloride* LIQUID 20 MEQ/15 ML UDC PO ONE (19:43)
[2019-08-25 21:54] VITALS: BP 125/76
--- NOTE | 2019-08-28 12:05 | ED ---
Imaging and Labs Follow Up Follow Up Type: Labs/Cultures Labs/Culture Result: Stool culture positive for campylobacter. Patient Communication/Plan: I called and spoke with pt. today at 1204 and discussed results. Pt. states she is still having diarrhea and symptoms have not improved. Pt. notes diarrhea x 10 days. Notes low grade fever. Denies blood in stool. Given length of symptoms will treat with azithromycin 500mg x 3 days. Pt. agreeable with plan. Provider Diagnoses: Abdominal pain, Diarrhea, Mesenteric adenitis, Hypokalemia, Fever
== END 2019-08-25 21:52 | disposition home or self-care (01) ==
LOC: ED 14:10
DX: R10.9 Unspecified abdominal pain (principal); R19.7 Diarrhea, unspecified; I88.0 Nonspecific mesenteric lymphadenitis; E87.6 Hypokalemia; R50.9 Fever, unspecified; R73.03 Prediabetes; I10 Essential (primary) hypertension; Z88.0 Allergy status to penicillin; Z98.51 Tubal ligation status; Z79.899 Other long term (current) drug therapy
CPT/HCPCS: 36415; 74177; 76705; 80048; 80053; 81003; 81015; 82140; 82150; 83605; 83630; 83690; 83735; 84484; 85025; 85027; 85610; 85730; 86140; 87040; 87045; 87046; 87077; 87086; 87186; 87493; 87899; 93005; 96360; 96361; 99284; A9270-GY; Q9967